=== PATIENT | male | born 1935 | race Caucasian/White ===

== ENCOUNTER → 2017-01-05 | Outpatient (CLI) | payer OTHER | LOC: FIMAGING 12:55 | PROVIDERS: ATTEND Internal Medicine | DX: M51.36 Other intervertebral disc degeneration, lumbar region (principal); M47.26 Other spondylosis with radiculopathy, lumbar region ==

== ENCOUNTER → 2017-08-24 | Outpatient (CLI) | payer OTHER | LOC: FIMAGING 14:51 | PROVIDERS: ATTEND Physical Medicine & Rehabilitation Neuromuscular Medicine | DX: M54.31 Sciatica, right side (principal) ==

== ENCOUNTER 2017-11-11 10:40 | Inpatient (IN) | payer OTHER ==
[2017-11-11] MEDS ORDERED: fentaNYL 100 MCG/2 ML INJ IVP ONE (12:34)
[2017-11-11] MEDS ORDERED: DIAZEPAM 10 MG/2 ML SYR IVP ONE (14:05)
[2017-11-11] MEDS ORDERED: KETOROLAC 30 MG/1 ML SDV IVP ONE (14:05)
[2017-11-11 15:20] LABS: PLATELET COUNT 249 10^3/uL (150-400)
--- NOTE | 2017-11-11 16:36 | EDPHY ---
H & P Stated Complaint: back pain Time Seen by Provider: 11/11/17 11:19 HPI/ROS: CHIEF COMPLAINT: Back pain HISTORY OF PRESENT ILLNESS: This is an 82-year-old male with a history of chronic back pain secondary to degenerative disease and spinal stenosis. He has been cared for by Dr. Alvarado and Dr. Agrawal for this problem. 1 week ago he bent over and when he stood up he felt a pulling in his right low back. The following day he had worsening pain with walking and the day after that he was unable to walk because of sharp pain in his right low back and pain radiating into the right leg. He has been using a cane for the past 6 months but was unable to get up and go to the bathroom, even with a cane. He has not been out of bed for the past 5 days. He has been taking 6-8 ibuprofen pills daily. He takes gabapentin 300 mg daily. He is not aware of any weakness. He tells me that he can't walk because the pain is so severe. He has not had any bowel or bladder problems. No fever. He has no known malignancies. He has never used IV drugs. This past August he received a Medrol Dosepak for treatment of back pain. He had a very adverse response to this medication and no pain relief. As a result , he in his doctor opted not to do a steroid injection. He has recently had a few physical therapy sessions. Hip x-ray of the right side was done this fall. An MRI of his back was done in December of 2016. REVIEW OF SYSTEMS: A ten point review of systems was performed and is negative with the exception of the items mentioned in the HPI. Past medical history: 1. Mild hypertension 2. 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 Chronic low back pain and sciatica Past surgical history: Right nephrectomy Social history: He is originally from [place]. He is here with his of 55 years. He does not use tobacco products. General Appearance: Alert. Vital signs reviewed. Lying supine on the bed. Blood pressure 180/93 at triage. Eyes: Pupils equal and round, no conjunctival injection, no discharge. Anicteric. ENT, Mouth: Mucous membranes are moist, no oropharyngeal erythema or edema. Neck: No lymphadenopathy, supple. Nontender over the cervical spine. Respiratory: Lungs are clear to auscultation; no wheezes, rales, or rhonchi. Cardiovascular: Regular rate and rhythm; 2/6 murmur. Gastrointestinal: Abdomen is soft and nontender, no masses or organomegaly, bowel sounds normal. Skin: Warm and dry, no rashes on exposed skin, normal color. Back: See neurologic exam Extremities: No lower extremity edema, no calf tenderness or swelling. Neurological: Alert and oriented. He remained supine on the bed throughout my interactions with him. He has some tenderness with palpation of the back at the level of his waist, to the right of the midline. No palpable muscle spasm. His strength is 5/5 with testing of hip flexion, hip extension, knee flexion, knee extension, plantar flexion, dorsiflexion, and EHL. Sensation is intact to light touch over both lower extremities. Psychiatric: Normal affect. - Personal History Current Tetanus Diphtheria and Acellular Pertussis (TDAP): Yes - Medical/Surgical History Hx Asthma: No Hx Chronic Respiratory Disease: No Hx Diabetes: No Hx Cardiac Disease: No Hx Renal Disease: Yes Hx Cirrhosis: No Hx Alcoholism: No Hx HIV/AIDS: No Hx Splenectomy or Spleen Trauma: No Other PMH: TB, nephrectomy, spinal stenosis, sciatica, Severe right hip arthritis - Social History Smoking Status: Never smoked Constitutional: Initial Vital Signs Temperature (C) 36.8 C 11/11/17 10:49 Heart Rate 70 11/11/17 10:49 Respiratory Rate 16 11/11/17 10:49 Blood Pressure 180/93 H 11/11/17 10:49 O2 Sat (%) 95 11/11/17 10:49 O2 Delivery Mode Nasal Cannula O2 (L/minute) 2 Allergies/Adverse Reactions: No Known Allergies Allergy (Unverified 11/11/17 12:42) Home Medications: Medication Instructions Recorded Gabapentin [Neurontin 300 MG (*)] 300 mg PO BID 11/11/17 Ibuprofen [Motrin (*)] 200 mg PO Q6H PRN 11/11/17 Medical Decision Making ED Course/Re-evaluation: Acute on chronic low back pain for which she has been taking ibuprofen and gabapentin at home. The pain has been so severe that he has been unable to get out of the bed foot out of his bed for the past 5 days. His neurologic exam is normal. He has not had bowel or bladder difficulties. He last had a lumbar MRI in December. He has also had his right hip x-rayed and has been told that it is "bone on bone ". He took ibuprofen a few hours before coming to the emergency department. Anti inflammatory medications were avoided until 6 hr had passed from the time of that dose. He was then given Toradol 15 mg. He also received IV fentanyl, IV Valium. He had some improvement with these medications but was still unable to sit up or stand at the bedside. Again, it was not because of weakness but because of pain. CBC and chemistries are normal. Urinated while in the department but is sample was not obtained. He has not had dysuria, urgency or frequency. He has had no difficulty controlling his urination. He is going to be admitted by the hospitalist service. He will possibly need to have another MRI to assess for pathology that would account for this acute change. Given his normal neurologic exam I do not feel that he needs an MRI in the emergency department. He has not fallen or had other trauma and I do not think the plain films will be helpful. There is nothing in the history or exam that makes me suspect infection. He has no known malignancy. He does have a history of tuberculosis in the remote past but no evidence of spinal tuberculosis was seen on his previous MRI. He is being admitted to the hospitalist service, as he is not able to get up out of bed and care for himself. Differential Diagnosis: Back pain including but not limited to muscular pain, herniated disc, diskitis, spine fracture, intra-abdominal causes and urinary tract infection. - Data Points Laboratory Results: Laboratory Results 11/11/17 11:22 11/11/17 11:22 11/11/17 11/11/17 11:22 11:22 WBC 5.44 10^3/uL 10^3/uL (3.80-9.50) RBC 5.32 10^6/uL 10^6/uL (4.40-6.38) Hgb 17.4 g/dL g/dL (13.7-17.5) Hct 50.9 % % (40.0-51.0) MCV 95.7 fL fL (81.5-99.8) MCH 32.7 pg pg (27.9-34.1) MCHC 34.2 g/dL g/dL (32.4-36.7) RDW 13.7 % % (11.5-15.2) Plt Count 249 10^3/uL 10^3/uL (150-400) MPV 10.0 fL fL (8.7-11.7) Neut % (Auto) 70.4 % % (39.3-74.2) Lymph % (Auto) 15.1 % % (15.0-45.0) [place] % (Auto) 12.3 % % (4.5-13.0) Eos % (Auto) 0.7 % % (0.6-7.6) Baso % (Auto) 0.4 % % (0.3-1.7) Nucleat RBC Rel Count 0.0 % % (0.0-0.2) Absolute Neuts (auto) 3.83 10^3/uL 10^3/uL (1.70-6.50) Absolute Lymphs (auto) 0.82 10^3/uL L 10^3/uL (1.00-3.00) Absolute Monos (auto) 0.67 10^3/uL 10^3/uL (0.30-0.80) Absolute Eos (auto) 0.04 10^3/uL 10^3/uL (0.03-0.40) Absolute Basos (auto) 0.02 10^3/uL 10^3/uL (0.02-0.10) Absolute Nucleated RBC 0.00 10^3/uL 10^3/uL (0-0.01) Immature Gran % 1.1 % % (0.0-1.1) Immature Gran # 0.06 10^3/uL 10^3/uL (0.00-0.10) Sodium 140 mEq/L mEq/L (135-145) Potassium 4.9 mEq/L mEq/L (3.5-5.2) Chloride 104 mEq/L mEq/L (97-110) Carbon Dioxide 24 mEq/l mEq/l (22-31) Anion Gap 12 mEq/L mEq/L (8-16) BUN 28 mg/dL H mg/dL (7-23) Creatinine 1.3 mg/dL mg/dL (0.7-1.3) Estimated GFR 53 Glucose 104 mg/dL H mg/dL (70-100) Calcium 9.8 mg/dL mg/dL (8.5-10.4) Medications Given: Discontinued Medications Diazepam (Valium) 2 mg IVP EDNOW ONE Stop: 11/11/17 14:06 Last Admin: 11/11/17 14:10 Dose: 2 mg Fentanyl (Sublimaze) 75 mcg IVP EDNOW ONE Stop: 11/11/17 12:35 Last Admin: 11/11/17 12:43 Dose: 75 mcg Ketorolac Tromethamine (Toradol) 10 mg IVP EDNOW ONE Stop: 11/11/17 14:06 Last Admin: 11/11/17 14:09 Dose: 10 mg Departure - Departure Disposition: [facility] Inpatient Acute Clinical Impression: Intractable low back pain Condition: Good
[2017-11-11] MEDS ORDERED: ONDANSETRON DISINTEGRATING 4 MG TAB PO PRN (17:43)
[2017-11-11] MEDS ORDERED: HYDROmorphONE/DILAUDID 1 MG/ML INJ IVP PRN (17:43)
[2017-11-11] MEDS ORDERED: ONDANSETRON 4 MG/2 ML VIAL IVP PRN (17:43)
[2017-11-11] MEDS ORDERED: ACETAMINOPHEN 325 MG TAB PO SCH (17:45)
[2017-11-11] MEDS ORDERED: traMADol 50 MG TAB PO PRN (17:45)
[2017-11-11] MEDS ORDERED: DIAZEPAM 2 MG TAB PO PRN (17:45)
--- NOTE | 2017-11-11 18:24 | GHP ---
[f rep st] HISTORY AND PHYSICAL DATE OF ADMISSION: 11/11/2017 HISTORY OF PRESENT ILLNESS: The patient is an 82-year-old gentleman with a history of spinal stenosi s and right hip arthritis, who presents with pain in his right side so bad that he cannot walk. It b dimas about a week ago when he bent over to cloth picker something. He felt something pull and since then, he has really had a hard time moving at all. He has not had any bowel or bladder incontinence. The pain has largely been between his hip in his spine. He has not had fever or chills. He does not curran ve redness or swelling. He says it is painful to sit up, and he is unable to bear weight. There was no fall. There was no pop. He has not had swelling in his legs. He does not use IV drugs. He received a Medrol Dosepak in August, with no pain relief, so a plan for steroid injection was un remarkable. He did not receive imaging in the emergency department, but I did discuss the case with Dr. Helen Maloney. REVIEW OF SYSTEMS: Complete 10-point review of systems conducted and negative except as noted in the HPI. PAST MEDICAL HISTORY: Hypertension. Tuberculosis at age 13. He had a right nephrectomy at age 28 f or tuberculosis. He has had chronic low back pain, with spinal stenosis, most severe at L4. SOCIAL HISTORY: He is a manager physical. He was born in [facility]. He lived in [place] for t he bulk of his life. Wine in the evening. No tobacco. FAMILY HISTORY: Parents . PHYSICAL EXAMINATION: VITAL SIGNS: Temp 36.8, blood pressure 180/93, now 167/89, pulse 60, breathin g 16 times a minute, 98% on room air. GENERAL: No acute distress. HEENT: Sclerae anicteric. Orop harynx clear. Mucous membranes moist. NECK: Supple, without lymphadenopathy or JVD. LUNGS: Clear to auscultation bilaterally. HEART: S1, S2. ABDOMEN: Soft, nontender, nondistended. LOWER EXTRE MITIES: Without edema. Calves nontender. In his right leg, he has a positive straight leg in the s ense that he has severe pain in his hip area at about 20 degrees. There is no radiating below his le g. SKIN: Without rash. DIAGNOSTIC DATA: We will perform a CAT to make sure he has no fracture and ATN of his hip. ASSESSMENT AND PLAN: An 82-year-old gentleman with spinal stenosis, here with hip and back pain prec luding him from walking. 1. Hip pain. I want make sure he does not have avascular necrosis or a fractured hip and will perfo rm a CT. 2. Back pain. This does not seem like pure sciatica. We will hold off on steroids. We will give h im Valium, on Toradol for 24 hours, some opiate pain relief, and PT/OT. I will hold off on imaging h is spine, as there are no neurologic deficits. 3. Hypertension. This is pain-related. 4. Prophylaxis. Low-molecular weight heparin. DISPOSITION: Observation status. /[id number]/MODL
[2017-11-11] MEDS: KETOROLAC 15 MG/1 ML SDV IVP SCH (19:05)
[2017-11-11] MEDS: ACETAMINOPHEN 500 MG TAB PO SCH (22:42)
[2017-11-11] MEDS: GABAPENTIN 300 MG CAP PO SCH (22:42)
[2017-11-12] MEDS: KETOROLAC 15 MG/1 ML SDV IVP SCH ×5 (00:43→23:39)
[2017-11-12] MEDS: ACETAMINOPHEN 500 MG TAB PO SCH ×3 (05:03→21:05)
[2017-11-12] MEDS: ENOXAPARIN 40 MG/0.4 ML SYR SC SCH (08:31)
[2017-11-12] MEDS: GABAPENTIN 300 MG CAP PO SCH ×2 (08:31→21:05)
--- NOTE | 2017-11-12 08:45 | HOSPPROG ---
Hospitalist Progress Note Assessment/Plan: Patient is an 82-year-old male with a history spinal stenosis and right hip arthritis. He presented the emergency room with severe right hip pain. Today is my 1st encounter with the patient. Chart reviewed. I reviewed the CT of his extremity. This showed severe right hip osteoarthritis. There is no evidence of avascular necrosis. *right hip pain CT scan confirms that he has severe osteoarthritis Will wait for physical therapy and occupational therapy to see him spoke with orthopedics to see if they have any input *back pain able to do straight leg lifts has spinal stenosis it doesn't appear this is the cause of his pain *htn bp elevated *Plan: orthopedics to see, not clear if he may need a hip replacement due to the severe osteoarthritis or if he would benefit from a steroid injection into the hip. Will re-evaluate today later and see if he can ambulate. He has been very active in the past. Subjective: Ramirez said the pain is very intense and he is unable to walk. Objective: Vital Signs Temp Pulse Resp BP Pulse Ox 36.7 C 63 18 153/80 H 92 11/12/17 07:26 11/12/17 07:26 11/12/17 07:26 11/12/17 07:26 11/12/17 07:26 11/11/17 11/12/17 11/13/17 05:59 05:59 05:59 Intake Total 250 Output Total 125 Balance 125 - Physical Exam Constitutional: uncomfortable, other (slender) Eyes: EOMI Ears, Nose, Mouth, Throat: hearing normal Cardiovascular: regular rate and rhythym Respiratory: no respiratory distress Gastrointestinal: normoactive bowel sounds Skin: warm, normal color Musculoskeletal: muscular tenderness (right hip) Neurologic: AAOx3 Psychiatric: interacting appropriately, not anxious ICD10 Worksheet Patient Problems: Problems Problem Status Onset Intractable low back pain Acute
--- NOTE | 2017-11-12 11:00 | ASMTCASEMG ---
Living Arrangements What is your living Answers: With Spouse arrangement? Who do you live with? Type Of Residence What kind of residence do Answers: House you live in? Discharge Plan Comments Coordination Status Comments Notes: Pt is a 82 y/o man admitted for intractable back pain. Therapies have been ordered and awaiting recommendations. Needs are TBD at this time. CM to follow. Plan: TBD Date Signed: 11/12/2017 10:59 AM Electronically Signed By:JOSE Montana
--- NOTE | 2017-11-12 19:36 | PDMN ---
Medical Necessity Medical necessity: Patient meets inpatient criteria per FILM AND VIDEO EDITOR note and [facility] guidelines: LOS will be > 2 midnights for ongoing intractable back pain and new inability to ambulate without significant pain; awaiting ortho consult/ additional evaluation, ongoing PT/OT, IV toradol.
--- NOTE | 2017-11-13 04:35 | GCON ---
[f rep st] CONSULTATION INPATIENT CONSULT NOTE CHIEF COMPLAINT: Right hip pain. HISTORY OF PRESENT ILLNESS: An 82-year-old gentleman with known spinal stenosis and right hip arthri tis. He says his right hip pain, which he describes as more posterior hip, has been really getting w orse over the last year. He also has spinal stenosis with bouts of leg pain. He has not seen a spin e surgeon about spinal stenosis. He has had an MRI showing the spinal stenosis. He has not had an e pidural steroid injection in the past. Acutely, just over a week ago, he bent over and felt a pop in his low back. Since this time, he has had more excruciating pain in the right hip and buttock area with some radiation down his leg. He had been able to walk before this. He is now having a lot of d ifficulty in ambulation. He is able to bear some weight on this, but is only able to walk a couple o f feet. He has been admitted to the hospital for pain control. He complains of pain in the right hi p and buttock area posteriorly. Really denies significant groin pain. He says sometimes pain does r adiate down. He does have some calf pain as well. REVIEW OF SYSTEMS: A 10-point review of systems is negative, except for above. PAST MEDICAL HISTORY: Hypertension, right nephrectomy. SOCIAL HISTORY: He lives with his . Occasional alcohol. No tobacco. FAMILY HISTORY: Reviewed and noncontributory. MEDICATIONS: Please see inpatient medication list. ALLERGIES: See inpatient allergy list. PHYSICAL EXAMINATION: GENERAL: He is alert, oriented, and appropriate. He is in no distress. CLOTILDE L SIGNS: Stable. HEENT: He is normocephalic and is atraumatic. His eyes are equal and reactive. His mouth shows moist mucous membranes. NECK: Supple. UPPER EXTREMITIES: Moves well without abnor mality. No areas of tenderness. CHEST: Shows symmetric chest rise. Pulse is regular rate and rhyt hm. ABDOMEN: Soft. LOWER EXTREMITIES: Left lower extremity, moves well at the hip, knee, and ankl e without any abnormalities. Negative straight leg raise on the left. He has 5/5 strength dorsiflex ion, plantar flexion, EHL, and FHL. On the right, he has tenderness to palpation more in his posteri or hip. He is really nontender anteriorly. He has a positive straight leg raise with radiating pain . He is nontender in his low back. He does have 0 degrees internal rotation. This is painful. He has 20 degrees of external rotation, which is also painful, more in his posterior hip. He has 5/5 st rength in his knee extension, dorsiflexion, plantar flexion, ankle dorsiflexion, plantar flexion in h is great toe. RADIOGRAPHS: His plain films, as well as CT scan shows severe hip arthritis. I do not see any evide nce of collapse nor AVN. No fracture in his hip. ASSESSMENT AND PLAN: 1. Right hip degenerative joint disease. 2. Spinal stenosis with sciatic pain. PLAN: I discussed the nature of his condition and treatment options with he and his . I do feel his acute flare in the last week is more consistent with a flare of spinal stenosis and sciatic pain . I do not see any collapse at his hip, nor AVN, nor fracture. I think it would be unlikely his hip arthritis would progress so quickly. I would recommend an MRI of his lumbar spine to look for an ac [place] disk herniation or further stenosis. He may then require some sort of intervention for this, suc h as an epidural steroid injection or consultation with spine surgeon. If he can get over the acute sciatic flare, I think he will eventually require total hip replacement, but it would be better that this be performed when he is able to ambulate more effectively and do this rehab after surgery if pos sible. Ideally, he would be able to discharge from the hospital and schedule a total hip on an [facility] outpatient basis. Follow up on the results of his scan and see how he improves in his hospital ava marcial. /[id number]/MODL
[2017-11-13] MEDS: KETOROLAC 15 MG/1 ML SDV IVP SCH ×3 (05:19→17:36)
[2017-11-13] MEDS: ACETAMINOPHEN 500 MG TAB PO SCH ×3 (05:19→21:28)
[2017-11-13] MEDS: ENOXAPARIN 40 MG/0.4 ML SYR SC SCH (07:51)
[2017-11-13] MEDS: GABAPENTIN 300 MG CAP PO SCH ×2 (07:51→21:28)
--- NOTE | 2017-11-13 10:00 | HOSPPROG ---
Hospitalist Progress Note Assessment/Plan: Patient is an 82-year-old male with a history spinal stenosis and right hip arthritis. He presented the emergency room with severe right hip pain. I reviewed the CT of his extremity. This showed severe right hip osteoarthritis. There is no evidence of avascular necrosis. *right hip pain CT scan confirms that he has severe osteoarthritis appreciate Dr Dasilva likely will need hip replacement in the future *back pain/MRI shows narrowing, stenosis neurosurgery to see having difficulty w walking due to the pain *htn bp stable *Plan:spoke w neurosurgery, they will see Ramirez today. Appreciate their involvement. Subjective: Ramirez is comfortable while in bed, has pain in right side of back and hip area with walking. Objective: Vital Signs Temp Pulse Resp BP Pulse Ox 36.2 C 62 16 138/72 H 93 11/13/17 04:00 11/13/17 04:00 11/13/17 04:00 11/13/17 04:00 11/13/17 04:00 11/12/17 11/13/17 11/14/17 05:59 05:59 05:59 Intake Total 550 Output Total 675 Balance -125 - Physical Exam Constitutional: uncomfortable Eyes: PERRL Ears, Nose, Mouth, Throat: hearing normal Cardiovascular: regular rate and rhythym, systolic murmur Respiratory: no respiratory distress Skin: warm Musculoskeletal: muscular tenderness, generalized weakness Neurologic: AAOx3 Psychiatric: interacting appropriately, not anxious ICD10 Worksheet Patient Problems: Problems Problem Status Onset Intractable low back pain Acute
--- NOTE | 2017-11-13 10:11 | SOAPPROG ---
[facility] Progress Note Assessment/Plan: Assessment: R hip severe djd R L4-L5 severe stenosis and disc herniation Plan: Based on MRI and history I feel his acute presentation is likely related to his spine pathology Agree with Neurosurgery consult Ideally he would get his lumbar mediated pain under control then have an outpatient total hip at some point in the future when he is able to ambulate and effectively participate in the post op rehab Recommend out patient follow up with Dr. Rodriguez for eval for total hip arthroplasty 11/13/17 10:07 Objective: Vital Signs Temp Pulse Resp BP Pulse Ox 36.2 C 62 16 138/72 H 93 11/13/17 04:00 11/13/17 04:00 11/13/17 04:00 11/13/17 04:00 11/13/17 04:00 11/12/17 11/13/17 11/14/17 05:59 05:59 05:59 Intake Total 550 Output Total 675 Balance -125 ICD10 Worksheet Patient Problems: Problems Problem Status Onset Intractable low back pain Acute
--- NOTE | 2017-11-13 13:27 | GCON ---
[f rep st] CONSULTATION CONSULTATION/HISTORY AND PHYSICAL DATE OF CONSULTATION: 11/13/2017 Patient seen in inpatient room 378 at 11:30 a.m. on 11/13/2017, by myself and Dr. Paredes. CHIEF COMPLAINT: Lower back pain with right lower extremity pain. HISTORY OF PRESENT ILLNESS: The patient is an 82-year-old male who lives here in the [facility]. He is originally from [facility]. He presented to the emergency department with lower back pain and right lower extremity pain. He has had a history of lower back issues and lower extremity issues robert t started approximately 4 years ago. At that time, he was seen in [place], had an MRI of his lumbar spine which showed an L4-5 degenerative disk disease with some stenosis. He did physical therapy an d got improvement on his own. He is a very active male. He states that walking is his big issue now , even walking any distance he gets symptoms down his leg on the right side. He denies any left lowe r extremity symptoms. He states he is able tolerate riding his bicycle well. He states over the course of the last 6 months and more so over the last 10 days, he has had worsenin g symptoms. He denies any loss of bowel or bladder control. Denies any upper extremity complaints, such as numbness, tingling or weakness. He does have a history of spinal stenosis and right hip arth ritis. The symptoms worsened over the course of the past week when he bent over to picker and packer something . He laid in bed for approximately 5 days. He came into the emergency department this past Sunday, was admitted to the internal medicine service, and imaging was obtained. We were consulted after the MRI was ordered and for the right lower extremity pain. He had a Medrol Dosepak in August. He curran s had physical therapy. There was plan for epidural steroid injection with Dr. Agrawal, but this has not happened yet. No saddle numbness. No perianal numbness. He is able to void appropriately. REVIEW OF SYSTEMS: Complete 10-point review of systems was conducted and negative, except as noted i n HPI. PAST MEDICAL HISTORY: Significant for the followin. Hypertension. 2. Tuberculosis at age 13. 3. Right nephrectomy at age 28 for tuberculosis. 4. Chronic lower back pain. 5. Spinal stenosis, most severe at L4-5. MEDICATIONS: Please see med rec form. ALLERGIES: No known drug allergies. PAST SURGICAL HISTORY: As noted above, as well as removal of appendix for an appendicitis in conjunc tion with the history of removal of a kidney related to TB. 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 He was born in [facility]. He lived in [place] [facility] for the majority of his life. He drinks a glass of wine in the evening and has no risk factors f or HIV or AIDS. He is a nonsmoker. FAMILY HISTORY: Patient's parents . IMMUNIZATIONS: Reported up-to-date. TRAVEL: No recent travel. PHYSICAL EXAMINATION: GENERAL: This is an awake, alert, oriented male in no acute distress. MOST R ECENT VITAL SIGNS: Blood pressure 161/77, with a MAP of 105; 80 heart rate, 16 respirations, 95% on room air, and temperature 36.6. HEENT: Head is normocephalic, atraumatic. Pupils are equal, round, reactive to light. The patient does have some vision loss on the left side related to history of an eye issue. EOMs intact. Ears are patent. Nose is patent. NECK: Soft and supple. Midline tender ness. Full range of motion in flexion, extension, lateral bending, and rotation. RESPIRATORY: Defe rred. CARDIAC: Deferred. ABDOMEN: Soft, nontender. No peritoneal signs. : Deferred. RECTAL: Deferred. NEUROLOGIC: Patient is awake, alert, and oriented to name, place, location, date, time, and situation. Memory is intact to immediate, past, and current events. Speech: No aphasia, dysar thria, or dysphonia. Cranial nerves 2-12 grossly intact. Motor: Patient has 5/5 strength in all mu scle groups of bilateral upper and lower extremities to include deltoid, biceps, triceps, brachioradi dexter, wrist flexors and extensors, cellular equipment repairer, intrinsic fingers, iliopsoas, quadriceps, hamstring, plantar flexion, dorsiflexion, EHL testing. Sensation is grossly intact to light touch throughout all derma tome distributions upper and lower extremities. Negative straight leg raise. Negative CARLY test. Reflexes of biceps, triceps, brachioradialis, knee jerk, and ankle jerk 2+/4. Toes are downgoing ivana aterally. Jose negative. Babinski negative. No evidence of clonus. MEDICAL DECISION-MAKING/DIAGNOSTIC STUDIES: Laboratory tests: White count 5.44 with an H and H of 1 7.4 and 50.9 with platelet count of 249. Chemistry on 11/11/2017, same day as the CBC, shows a sodiu m of 140, potassium 4.9, chloride 104, CO2 of 24, BUN 28, creatinine 1.3, and glucose of 104. Extremity CT on 11/11/2017, of the right hip, shows severe right hip osteoarthritis with no fracture or evidence of AVN. X-rays of the hip obtained 11/12/2017, show no fracture or bone lesion. MRI of the lumbar spine dated 11/13/2017, shows multilevel degenerative changes noted, non-visualized right kidney. At L4-5, he has severe central stenosis. There is severe right neural foraminal sten osis. There is a disk herniation noted in the neural foramen on the right. There is moderate bilate ral facet arthropathy and ligamentum flavum hypertrophy. At 3-4, he has moderate central canal steno sis secondary to a broad-based disk bulge. At L2-3, there is moderate central canal stenosis seconda ry to moderate facet arthropathy, and a disk bulge is noted as well. IMPRESSION: 1. History of tuberculosis as a child with history of right kidney removal related to this issue. 2. Chronic lower back pain with right lower extremity pain that has worsened over the course of the last few days. 3. Degenerative disk disease and severe stenosis at L4-5, worse on the right. PLAN/DISCUSSION: This is an 82-year-old male who is otherwise very active and healthy for his age. He was seen by the internal medicine physicians, and an MRI was ordered. He does have severe stenosi s on the right side at L4-5. I spoke with the patient about surgical and nonsurgical treatments for this, including fusion as well as decompression. Recommended an injection at this level on the right side at L4-5. This was ordered through the interventional radiology department. He will get this i njection here hopefully in the next day or so. We will see how he reacts to that. We talked about s urgical treatments; he states he is not interested at this time. We talked about worsening symptoms, when to call and return. The patient understands and agrees. /[id number]/MODL
--- NOTE | 2017-11-13 15:55 | ASMTCMCOM ---
CM Note CM Note Notes: CM met w/ pt and for dispo planning. OT is recommending HC vs SNF. PT is recommending HC. Pt would like to d/c with HC instead of going to SNF. Pt and did not have preference on HC agency. Referral made to [facility]. HC is able to accept. CM to follow. Plan: [facility], PT and OT Date Signed: 11/13/2017 03:54 PM Electronically Signed By:JOSE [place]
[2017-11-14] MEDS: KETOROLAC 15 MG/1 ML SDV IVP SCH ×4 (00:16→18:26)
[2017-11-14] MEDS: ACETAMINOPHEN 500 MG TAB PO SCH ×3 (05:38→21:30)
[2017-11-14] MEDS: GABAPENTIN 300 MG CAP PO SCH ×2 (07:30→21:30)
--- NOTE | 2017-11-14 07:48 | SOAPPROG ---
SOYUSUF Progress Note Assessment/Plan: Assessment: 82 yo male with right leg pain due to L4/5 foraminal stenosis. No weakness or tingling or b/b issues Plan: IR for BOB today we will follow response post injection 11/14/17 07:46 Subjective: awake, alert, c/o right leg pain when walking, fine at rest denies b/b issues, weakness or tingling Objective: Vital Signs Temp Pulse Resp BP Pulse Ox 36.8 C 69 18 167/82 H 96 11/14/17 07:26 11/14/17 07:26 11/14/17 07:26 11/14/17 07:26 11/14/17 07:26 11/13/17 11/14/17 11/15/17 05:59 05:59 05:59 Intake Total 550 650 Output Total 675 Balance -125 650 Neuro: IGLESIAS, sens +LT follows commands x 4 alert and oriented, normal affect ICD10 Worksheet Patient Problems: Problems Problem Status Onset Intractable low back pain Acute
--- NOTE | 2017-11-14 12:59 | HOSPPROG ---
Hospitalist Progress Note Assessment/Plan: Patient is an 82-year-old male with a history spinal stenosis and right hip arthritis. He presented the emergency room with severe right hip pain. I reviewed the CT of his extremity. This showed severe right hip osteoarthritis. There is no evidence of avascular necrosis. *right hip pain CT scan confirms that he has severe osteoarthritis appreciate Dr Dasilva likely will need hip replacement in the future *back pain/MRI shows narrowing, stenosis IR today for a BOB appreciate neurosurgery team *htn bp elevated today, will follow *dvt prophylaxis: athrombic pumps, reyna hose, no LMWH due to procedure *Plan: to go to IR today for steroid injection and can hopefully discharge in the morning. Subjective: Ramirez said he was able to walk a bit yesterday, but continues to have right sided back pain. Objective: Vital Signs Temp Pulse Resp BP Pulse Ox 36.5 C 70 18 171/86 H 96 11/14/17 10:41 11/14/17 10:41 11/14/17 10:41 11/14/17 10:41 11/14/17 10:41 11/13/17 11/14/17 11/15/17 05:59 05:59 05:59 Intake Total 550 650 Output Total 675 Balance -125 650 - Physical Exam Constitutional: uncomfortable Eyes: PERRL Ears, Nose, Mouth, Throat: hearing normal Respiratory: no respiratory distress Skin: warm Musculoskeletal: generalized weakness Neurologic: AAOx3 Psychiatric: interacting appropriately ICD10 Worksheet Patient Problems: Problems Problem Status Onset Intractable low back pain Acute
[2017-11-14] MEDS ORDERED: D5W 1/2 NS 1,000 ML IV SCH (13:00)
[2017-11-14] MEDS ORDERED: TRIAMCINOLONE ACETONIDE 200 MG/5 ML MDV IM ONE (16:12)
[2017-11-15] MEDS: KETOROLAC 15 MG/1 ML SDV IVP SCH ×2 (00:56→05:53)
[2017-11-15] MEDS: ACETAMINOPHEN 500 MG TAB PO SCH (05:53)
[2017-11-15 07:20] VITALS: BP 163/92; PULSE 82; RESP 18; TEMP 98; O2SAT 94
--- NOTE | 2017-11-15 08:19 | HOSPPROG ---
Hospitalist Progress Note Assessment/Plan: Patient is an 82-year-old male with a history spinal stenosis and right hip arthritis. He presented the emergency room with severe right hip pain. I reviewed the CT of his extremity. This showed severe right hip osteoarthritis. There is no evidence of avascular necrosis. *right hip pain CT scan confirms that he has severe osteoarthritis appreciate Dr Dasilva likely will need hip replacement in the future *back pain/MRI shows narrowing, stenosis s/p BOB at L3-L4 *htn bp elevated today, *dvt prophylaxis: athrombic pumps, reyna hose, no LMWH due to procedure *Plan: dc home with home care/ further f/u with Dr Dasilva and neurosurgery team Subjective: Ramirez is feeling much better, ambulating well. Objective: Vital Signs Temp Pulse Resp BP Pulse Ox 36.6 C 82 18 163/92 H 94 11/15/17 07:19 11/15/17 07:19 11/15/17 07:19 11/15/17 07:19 11/15/17 07:19 11/14/17 11/15/17 11/16/17 05:59 05:59 05:59 Intake Total 650 150 Output Total 200 300 Balance 650 -50 -300 - Physical Exam Constitutional: no apparent distress, appears nourished Eyes: PERRL Ears, Nose, Mouth, Throat: hearing normal Respiratory: no respiratory distress Skin: warm Musculoskeletal: generalized weakness (able to ambulate ) Neurologic: AAOx3 Psychiatric: interacting appropriately ICD10 Worksheet Patient Problems: Problems Problem Status Onset Intractable low back pain Acute
[2017-11-15] MEDS: ENOXAPARIN 40 MG/0.4 ML SYR SC SCH (08:30)
[2017-11-15] MEDS: GABAPENTIN 300 MG CAP PO SCH (08:30)
--- NOTE | 2017-11-15 09:03 | PDIAF ---
- Diagnosis Diagnosis: severe stenosis, s/p BOB, right hip pain, severe osteoathritis Code Status: Full Code - Medication Management Discharge Medications: Medications to Continue on Transfer Gabapentin [Neurontin 300 MG (*)] 300 mg PO BID 11/11/17 [Last Taken 11/10/17] Ibuprofen [Motrin (*)] 200 mg PO Q6H PRN 11/11/17 [Last Taken 11/11/17 10:00] Acetaminophen [Tylenol ES 500 mg (*)] 1,000 mg PO Q8 tab 11/15/17 [Last Taken Unknown] traMADol [Ultram 50 mg (*)] 50 mg PO Q6HRS PRN #20 tab 11/15/17 [Last Taken Unknown] Discharge Medications: Refer to the Discharge Home Medication list for PRN reason. - Orders Services needed: Home Care, Physical Therapy, Occupational Therapy Home Care Face to Face: I certify that this patient was under my care and that I had the required [id number] encounter meeting the encounter requirements on the discharge day. My findings support the fact that the patient is homebound as defined in Home Care Face to Face Continued: CMS Chapter 7 Medicare Benefits Manual 30.1.1 , The condition of the patient is such that there exists a normal inability to leave home and consequently, leaving home would require a considerable and taxing effort. Diet Recommendation: no restrictions on diet Diet Texture: Regular Texture Diet Activity/Weight Bearing Restrictions: goal is to help him get oob safely, ambulate. Strengthening exercises. - Follow Up Care Current Providers and Referrals: Daniel Brenner PAC [Physician Washroom Operator] - Macario Dasilva MD [Medical Doctor] - NONE *PRIMARY CARE P,. [Unknown] -
--- NOTE | 2017-11-15 09:24 | NEUSURGPN ---
Assessment/Plan: Assessment/Plan: Assessment: 82 yo male with right leg pain due to L4/5 foraminal stenosis. Plan: SP L4/5 BOB- improved this morning but has yet to get up and walk. Will see how he does up and walking around today, but did also tell him it can take 1-2 weeks to take full effect Plan to DC today and will follow up with us in 4-6 weeks. If no better after injection, could still consider surgery Recommend continued use of NSAIDs- Ibuprofen at home as needed Discussed with Dr. Sarah Subjective: Patient states he thinks he feels somewhat better today but has not yet been out of bed this morning. Denies weakness, bowel or bladder dysfunction. Objective: NAD Resting in bed BLE 5/5= Sensation intact to lt touch DTR 2+ delicia - Physician Discussed Patient with : Reggie Neurosurgery Physical Exam - Vitals, I&O, Labs I and O 11/14/17 11/15/17 11/16/17 05:59 05:59 05:59 Intake Total 650 150 Output Total 200 300 Balance 650 -50 -300 Intake: Oral (ml) 650 150 Output: Urine (ml) 200 300 Urinal 200 300 Other: Intake Quantity Yes Yes Sufficient Number of Voids Toilet 3 Vital Signs Temp Pulse Resp BP Pulse Ox 36.6 C 82 18 163/92 H 94 11/15/17 07:19 11/15/17 07:19 11/15/17 07:19 11/15/17 07:19 11/15/17 07:19 ICD10 Worksheet Patient Problems: Problems Problem Status Onset Intractable low back pain Acute
--- NOTE | 2017-11-15 09:31 | GDS ---
[f rep st] DISCHARGE SUMMARY DISCHARGE DIAGNOSES: 1. Right hip pain. 2. Back pain, severe stenosis. 3. Hypertension. CONSULTATION: 1. Dr. Macario Dasilva with Orthopedics. 2. Daniel Brenner, physician speech language pathologist assistant with Neurosurgery. HISTORY OF PRESENT ILLNESS: Briefly, the patient is an 82-year-old gentleman who has a history of spinal stenosis and right hip arthritis. He presented to the emergency room with severe pain in his right hip area that he could not walk. He did a Medrol Dosepak in August without any relief. On admission, he had a CT scan of the right hip, which showed severe right hip osteoarthritis , but he had no fracture or evidence of avascular necrosis. Subsequently, he was seen by Orthopedics. Dr. Dasilva's recommendation was to get his back pain under control and he may need further evaluation of the right hip. Subsequently , a lumbar spine MRI was performed which showed L4-L5 severe central canal stenosis and severe right neural foraminal stenosis secondary to right neural foraminal disk herniation, moderate bilateral facet arthropathy, and hypertrophy. At L3-L4, he has moderate central canal stenosis secondary to a broad-based disk bulge and bilateral facet arthropathy and at L2-L3, he has moderate central canal stenosis secondary to moderate bilateral facet arthropathy and disk bulge. Subsequently, he went to Interventional Radiology and Dr. Naylor performed a steroid injection into the L3-L4 area. Today, he is able to ambulate. He is feeling markedly better. He will be discharged home and Home Care will follow up with him. HOSPITAL COURSE: 1. Right hip pain. A CT scan confirms that he has severe osteoarthritis. He will likely need hip replacement in the future. 2. Back pain. He is status post an epidural steroid injection L3-L4, ambulating well with a walker. 3. Hypertension. His blood pressure has been elevated intermittently. Will have him follow up with his PCP. DISCHARGE CONDITION: Stable. Blood pressure is 163/92, heart rate is 82, respiratory rate is 18, O2 sat on room air 94%. Temperature is 36.6 Celsius. MEDICATIONS AT DISCHARGE: Please see the EMR. DISCHARGE INSTRUCTIONS: 1. To follow up with Dr. Dasilva. 2. If his back pain continues, to follow up with Neurosurgery. 3. If he develops fever, chills, chest pain, or shortness of breath, return to the ER. Greater than 30 minutes discharging and coordinating patient's care. /[id number]/MODL MTDD
--- NOTE | 2017-11-15 15:40 | ASDISCHSUM ---
Discharge Information Plan Status:Home with Home Health Medically Cleared to Leave: Discharge Date:11/15/2017 10:55 AM CM D/C Disposition:Home Health Service ADT D/C Disposition:Home Health Service Projected Discharge Date:11/14/2017 11:00 AM Transportation at D/C:Family Discharge Delay Reason: Follow-Up Date:11/14/2017 11:00 AM Discharge Slot: Final Diagnosis: Placement Information Referral Type:*Home Health Care Services Referral ID:[id number] Provider Name:[facility] Address 1:[address] Address 2: City:[place] Selection Factors: State:[place] Patient Contact Information Contact Name:SINAN Relationship: Address:[address] Work Phone: [facility]:[place] Alternate Phone: State/Zip Code:[place] [address] Email: Financial Information Financial Class:Medicare Advantage Plans Primary Plan Desc:[facility] [employer] Primary Plan Number:[id number] Secondary Plan Desc: Secondary Plan Number: Assessment Information [facility] Initial CM Assessment Living Arrangements What is your living Answers: With Spouse arrangement? Who do you live with? Type Of Residence What kind of residence do Answers: House you live in? Discharge Plan Comments Coordination Status Comments Notes: Pt is a 82 y/o man admitted for intractable back pain. Therapies have been ordered and awaiting recommendations. Needs are TBD at this time. CM to follow. Plan: TBD Date Signed: 11/12/2017 10:59 AM Electronically Signed By:JOSE [place] [facility] CM Progress Note CM Note CM Note Notes: CM met w/ pt and for dispo planning. OT is recommending HC vs SNF. PT is recommending HC. Pt would like to d/c with HC instead of going to SNF. Pt and did not have preference on HC agency. Referral made to [facility]. [facility] is able to accept. CM to follow. Plan: [facility], PT and OT Date Signed: 11/13/2017 03:54 PM Electronically Signed By:JOSE [place] Case Management Discharge Plan Note Case Management Discharge Discharge Order Complete? Answers: Yes Patient to Obtain Answers: Independently Medications Transportation Arranged Answers: Family/Friends Faxed Final Orders Answers: Yes Family Notified Answers: Yes Discharge Comments Notes: Spoke w/RN, pt will dc home today with [facility], [place] notified. Pt requesting PT only, orders in chart, at bedside. Date Signed: 11/15/2017 10:11 AM Electronically Signed By:Meagan Potter RN Intervention Information Intervention Type:*TREVOR-Signed Date of Service:11/12/2017 09:48 AM Patient Type:Observation Staff Member:Chantelle Doss Hours: Discipline: Severity: Comment:
== END 2017-11-15 10:55 | disposition home health service (06) | DRG 552 ==
LOC: EDUNIT# → F3E 15:37 → OBSVTOIN 11-12 17:06
PROVIDERS: ADMIT Internal Medicine; ATTEND Internal Medicine
PROC: 3E0S3BZ Introduction of Anesthetic Agent into Epidural Space, Percutaneous Approach (ICD-10-PCS; principal; 2017-11-14)
PROC: 3E0S33Z Introduction of Anti-inflammatory into Epidural Space, Percutaneous Approach (ICD-10-PCS; principal; 2017-11-14)
DX: M48.061 Spinal stenosis, lumbar region without neurogenic claudication (principal); M16.11 Unilateral primary osteoarthritis, right hip; I10 Essential (primary) hypertension; M51.26 Other intervertebral disc displacement, lumbar region; G89.29 Other chronic pain; Z86.11 Personal history of tuberculosis; Z90.5 Acquired absence of kidney
CPT/HCPCS: 96374; 97116-GP; 97162-GP; 97166-GO; 97530-GO; 97535-GO; G0378; G8978-GP-CM; G8979-GP-CJ; G8980-GP-CK; G8987-GO-CM; G8988-GO-CJ; G8989-GO-CJ; J1170; J1650; J1885; J3010; J3301; J3360

== ENCOUNTER 2017-11-30 06:27 | Inpatient (IN) | payer OTHER ==
--- NOTE | 2017-11-30 06:37 | PDHPUP ---
History & Physical Update H&P update statement: This history and physical update is based on an assessment of the patient which was completed after admission or registration (within 24 hours), but prior to the surgery/procedure. H&P update: H&P reviewed & patient examined, no change in patient's condition since H&P completed
[2017-11-30] MEDS ORDERED: ACETAMINOPHEN 500 MG TAB PO ONE (06:52)
[2017-11-30] MEDS ORDERED: ceFAZolin 2 GM/SWFI 2 GM/20 ML SYR IVP ONE (06:52)
[2017-11-30] MEDS ORDERED: GABAPENTIN 300 MG CAP PO ONE (06:52)
--- NOTE | 2017-11-30 06:53 | PDANEPAE ---
ANE History of Present Illness lumbar radiculopathy/spinal stenosis here for L4-5 fusion ANE Past Medical History - Cardiovascular History Hx Hypertension: Yes Hx Arrhythmias: No Hx Chest Pain: No Hx Coronary Artery / Peripheral Vascular Disease: No Hx CHF / Valvular Disease: No Hx Palpitations: No Cardiovascular History Comment: HEART MURMUR - ASYMPTOMATIC - Pulmonary History Hx COPD: No Hx Asthma/Reactive Airway Disease: No Hx Recent Upper Respiratory Infection: No Hx Oxygen in Use at Home: No Hx Sleep Apnea: No Sleep Apnea Screening Result - Last Documented: Negative Pulmonary History Comment: PNEUMOTHORAX AGE 13 - Neurologic History Hx Cerebrovascular Accident: No Hx Seizures: No Hx Dementia: No - Endocrine History Hx Diabetes: No - Renal History Hx Renal Disorders: Yes Renal History Comment: ONE KIDNEY - LEFT - Liver History Hx Hepatic Disorders: No - Neurological & Psychiatric Hx Hx Neurological and Psychiatric Disorders: No - Cancer History Hx Cancer: Yes Cancer History Comment: 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 EYE SURG. HERNIA REPAIR. R NEPHRECTOMY. PNEUMOTHORAX. TONSILLECTOMY ANE Review of Systems Review of Systems: - Exercise capacity Exercise capacity: >=4 METS ANE Patient History - Allergies Allergies/Adverse Reactions: No Known Allergies Allergy (Unverified 11/11/17 12:42) - Home Medications Home Medications: Gabapentin [Neurontin 300 MG (*)] 300 mg PO BID 11/11/17 [Last Taken 11/10/17] Acetaminophen [Tylenol ES 500 mg (*)] 1,000 mg PO Q8 PRN 11/27/17 [Last Taken Unknown] Valsartan [Diovan (*)] 40 mg PO DAILY 11/27/17 [Last Taken Unknown] traMADol [Ultram 50 mg (*)] 50 mg PO BID 11/27/17 [Last Taken Unknown] - NPO status NPO Status: no food or drink >8 hours - Anes Hx Anes Hx: no prior problems - Smoking Hx Smoking Status: Former smoker - Alcohol Use Alcohol Use: Occasionally - Family Anes Hx Family Anes Hx: none ANE Labs/Vital Signs - Vital Signs Height: 172.72 cm Weight: 72.75 kg ANE Physical Exam - Airway Neck exam: FROM Mallampati Score: Class 2 Mouth exam: poor dentition Mouth image: 1 - missing 2 - missing 3 - missinng 4 - missing - Pulmonary Pulmonary: no respiratory distress, clear to auscultation - Cardiovascular Cardiovascular: regular rate and rhythym, no murmur, rub, or gallop - ASA Status ASA Status: III ANE Anesthesia Plan Anesthesia Plan: general endotracheal anesthesia Total IV Anesthesia: Yes
[2017-11-30] MEDS ORDERED: LIDOCAINE 1% 2 ML INJ ID PRN (06:54)
[2017-11-30] MEDS ORDERED: LR 1,000 ML IV ONE (06:54)
[2017-11-30] MEDS ORDERED: fentaNYL 100 MCG/2 ML INJ ONE ×2 (07:08→11:40)
[2017-11-30] MEDS ORDERED: REMIFENTANIL HCL 1 MG VIAL ONE ×2 (07:08→10:26)
[2017-11-30] MEDS ORDERED: PROPOFOL/EMULSION 500 MG/50 ML BOTTLE IV ONE ×2 (07:09→10:26)
[2017-11-30] MEDS ORDERED: PROPOFOL 200 MG/20 ML VIAL ONE (07:09)
[2017-11-30] MEDS ORDERED: LIDOCAINE 2% 100 MG/5 ML SYR ONE (07:13)
[2017-11-30] MEDS ORDERED: ROCURONIUM 50 MG/5 ML VIAL ONE (07:13)
[2017-11-30] MEDS ORDERED: CHLORHEXIDINE GLUC HIBICLENS 118 ML BTL TP ONE (07:14)
[2017-11-30] MEDS ORDERED: THROMBIN (BOVINE) 5,000 UNIT VIAL TP ONE (07:15)
[2017-11-30] MEDS ORDERED: BACITRACIN 50,000 UNITS/10 ML SYR IRR ONE (07:15)
[2017-11-30] MEDS ORDERED: BUPIVACAINE 0.25% 30 ML SDV ONE (07:15)
--- NOTE | 2017-11-30 07:37 | CPEKG ---
Heart Rate: 74 RR Interval: 811 P-R Interval: 152 QRSD Interval: 100 QT Interval: 408 QTC Interval: 453 P [place]: 76 QRS [place]: -58 T Wave [place]: 45 EKG Severity - ABNORMAL ECG - EKG Impression: SINUS RHYTHM EKG Impression: LAD, CONSIDER LEFT ANTERIOR FASCICULAR BLOCK Electronically Signed By: Yousif Joseph 02-Dec-2017 06:21:02
[2017-11-30] MEDS ORDERED: ACETAMINOPHEN 500 MG TAB PO PRN ×2 (07:44→12:05)
[2017-11-30] MEDS ORDERED: NALOXONE HCL 0.4 MG/ML INJ IVP PRN ×2 (07:45→12:05)
[2017-11-30] MEDS ORDERED: ONDANSETRON DISINTEGRATING 4 MG TAB PO PRN (07:45)
[2017-11-30] MEDS ORDERED: POLYETHYLENE GLYCOL 3350 17 GM PKT PO PRN (07:45)
[2017-11-30] MEDS ORDERED: METHOCARBAMOL 750 MG TAB PO PRN (07:45)
[2017-11-30] MEDS ORDERED: BISACODYL 10 MG SUPP PR PRN (07:45)
[2017-11-30] MEDS ORDERED: ONDANSETRON 4 MG/2 ML VIAL IVP PRN (07:45)
[2017-11-30] MEDS ORDERED: MAGNESIUM HYDROXIDE 30 ML UDCUP PO PRN (07:45)
[2017-11-30] MEDS ORDERED: HYDROmorphONE/DILAUDID 1 MG/ML INJ IVP PRN ×2 (07:45→12:05)
[2017-11-30] MEDS ORDERED: NS W/ 20 KCl/L 1,000 ML IV SCH (07:45)
[2017-11-30] MEDS ORDERED: morphINE PCA 30 MG/30 ML PCA IV PRN (07:45)
[2017-11-30] MEDS ORDERED: HYDROCODONE/APAP 5/325 TAB PO PRN ×2 (07:45→12:05)
[2017-11-30] MEDS ORDERED: oxyCODONE IR 5 MG TAB PO PRN (07:45)
[2017-11-30] MEDS ORDERED: diphenhydrAMINE 25 MG CAP PO PRN (07:45)
[2017-11-30] MEDS ORDERED: LACTULOSE 20 GM/30 ML UDCUP PO PRN (07:45)
[2017-11-30] MEDS ORDERED: ceFAZolin 1 GM VIAL ONE (11:15)
--- NOTE | 2017-11-30 11:53 | SOAPPROG ---
SOAP Progress Note Assessment/Plan: Post Op Visit: S: Awake and alert. Pt with expected lower back pain O: AFVSS/PERRLA/EOMI no droop CN 2-12 grossly intact +lt touch 5/5 BUE/BLE = CDI CLAUDETTE in place A/P: 82 yo male that is s/p L4/5 TLIF -orders in place -call with any questions or concerns -take medications as directed -pt seen by Dr Paredes as garcia -brace when out of bed 11/30/17 11:51 Objective: Vital Signs Temp Pulse Resp BP Pulse Ox 36.7 C 82 16 165/87 H 94 11/30/17 07:25 11/30/17 07:25 11/30/17 07:25 11/30/17 07:25 11/30/17 07:25 ICD10 Worksheet Patient Problems: Problems Problem Status Onset Lumbar radicular pain Acute Lumbar stenosis Acute Intractable low back pain Acute - ICD10 Problem Qualifiers (1) Lumbar stenosis (2) Lumbar radicular pain
[2017-11-30] MEDS ORDERED: fentaNYL 100 MCG/2 ML INJ IVP PRN (12:05)
[2017-11-30] MEDS ORDERED: LABETALOL HCL 5 MG/ML 20 ML MDV IVP PRN (12:05)
[2017-11-30] MEDS ORDERED: OXYCODONE/APAP 5/325 TAB PO PRN (12:05)
--- NOTE | 2017-11-30 12:05 | POSTANESTH ---
Post Anesthetic Evaluation Cardiovascular Status: Normal, Stable, Similar to Pre-Op Cond Respiratory Status: Normal, Stable, Similar to Pre-op Cond. Level of Consciousness/Mental Status: Can Participate in Eval, Alert and Oriented Pain Control: Adequate, Prn Tx Ordered Nausea/Vomiting Control: Adequate, Prn Tx Ordered Complications Possibly Related to Anesthesia: None Noted
[2017-11-30] MEDS ORDERED: ceFAZolin 2 GM/DEXTROSE 100 ML IV SCH (14:00)
[2017-11-30] MEDS ORDERED: ceFAZolin 2 GM/SWFI 2 GM/20 ML SYR IVP SCH (14:30)
[2017-11-30] MEDS: ceFAZolin 2 GM/SWFI 2 GM/20 ML SYR IVP SCH ×2 (16:43→21:36)
[2017-11-30] MEDS: GABAPENTIN 300 MG CAP PO SCH ×2 (17:59→20:14)
[2017-11-30] MEDS: FAMOTIDINE 20 MG TAB PO SCH ×2 (17:59→20:14)
[2017-11-30] MEDS: SENNOSIDES/DOCUSATE SODIUM TAB PO SCH ×2 (17:59→20:14)
[2017-11-30] MEDS: VALSARTAN 40 MG TAB PO SCH (18:00)
[2017-11-30] MEDS: traMADol 50 MG TAB PO SCH ×2 (18:00→20:59)
--- NOTE | 2017-11-30 22:37 | GOP ---
[f rep st] OPERATIVE REPORT DATE OF OPERATION: 11/30/2017 SURGEON: Sonny Paredes MD WEAVER NEEDLE LOOM: Daniel Brenner PA-C PREOPERATIVE DIAGNOSIS: Severe right L4 radiculopathy, severe right foraminal stenosis L4-5, right f ar-lateral disk herniation L4-5, lumbar facet arthropathy L4-5, moderately severe bilateral recess st enosis L4-5. POSTOPERATIVE DIAGNOSIS: Severe right L4 radiculopathy, severe right foraminal stenosis L4-5, right far-lateral disk herniation L4-5, lumbar facet arthropathy L4-5, moderately severe bilateral recess s tenosis L4-5. PROCEDURE PERFORMED: Posterior lateral intervertebral arthrodesis at L4-5 with removal of a right la rge foraminal disk herniation L4-5 (80801); placement of biomechanical intervertebral device L4-5 ([id number]); posterior nonsegmental instrumentation across a single interspace ([id number]); microscope, spinal s tereotactic, same incision, bone graft harvest. FINDINGS: ESTIMATED BLOOD LOSS: 100 cc. INDICATIONS: The patient is an 82-year-old gentleman who was recently hospitalized with terrible rig ht leg pain. He did have a foraminal disk fragment on the right at L4 that I think was the primary c ulprit, but it appeared to be sub annular in location, did not appear to be a completely free fragmen t. There was also facet arthropathy and a mild spondylolisthesis at L4-5 that was subtle on MRI, and I did not think that a far-lateral diskectomy alone would likely yield the relief he was seeking. H rosalinda was completely miserable. I did discuss this approach and felt that he could try a more simple pro cedure and a decompressive procedure alone, but it had a higher probability of requiring a return to the operating room if he failed to improve. I thought a more definitive approach would be to complet gurinder remove the L4-5 facet on the right, completely decompress the exiting L4 nerve root. This too co uld not be guaranteed of success, but I felt this was the most reasonable way to approach this case. He understood the concept of adjacent segment disease, as well as the risks of the surgery including the risk of screw and hardware malposition, nerve injury. He knew there was a chance of needing mor e spine surgery in the future, as well as the risk of infection and bony nonunion. He did want to pr oceed despite these risks. DESCRIPTION OF PROCEDURE: The patient was taken to the operating room, placed in supine position. G eneral anesthesia was begun. He was flipped prone onto the Jayy table. Care was taken to pad all points of contact. His back was sterilely prepped and draped by the surgeon. A localizing x-ray wa s taken. We made a 4.5 cm incision above the L4-5 interspace. The subcutaneous tissue was dissected using Bovie cautery down through the fascia and a subperiosteal dissection was made down to the L4-5 lamina. Self-retaining retractors placed. A localizing x-ray was taken. We denuded the bilateral hypertrophic facets at L4-5 and indeed, the inferior articular process, both on the right and the lef t, the inferior portion of the inferior articular process was actually fractured and there was spondy lolisthesis present. The IAP of L4 was cutting into the lamina of L5 in the usual fashion, and groov ing the lamina in the intersection of the pars interarticularis with the superior articular process o f L5. This was classic as we see in spondylolisthesis cases. We decorticated all visible bone, attached a Stealth reference frame to the L4 spinous process, perfo rmed an O-arm spin and then, using frameless Stealth stereotaxy, we placed pedicle screws bilaterally . Interestingly at L5, the lateral recesses were very deep and there was a very narrow trajectory. We had to begin our screws somewhat laterally, particularly on the left-hand side, and the screw traj ectory was very short. We actually extended our skin incision about 0.5 cm to a centimeter longer to allow a more lateral trajectory on the left-hand side. We were able to get successful screws into a n interpedicular location. There was no violation of the pedicle boundaries and they all stimulated at acceptable levels. There was good bony purchase, although he did have somewhat soft bone as one m gianat expect, given his age. We placed a sheila down on the left, distracted a few millimeters on the left, but we did not place a ro d on the right, so we could do a radical view of the exiting L4 nerve root. We then harvested the in ferior L4 spinous process and the very rostral L5 spinous process for autologous grafting purposes, a nd under the scope we performed bilateral decompressions, really minimal decompression on the left, b ut we did work our way in the lateral recess and indeed on the left-hand side, it had a very deep lef t lateral recess. On the right-hand side, we worked our way down the rostral arch of L5 toward the S AP of L5 and completely removed the right L4-5 facet joint. We identified the exiting L4 nerve root. We also identified the traversing L5 nerve root and even on the right-hand side, the lateral recess was rather deep. The 5 root was actually taut and stretched over a chronic prolapsed anulus at L4-5 and indeed, here as well, we could appreciate the signs of a degenerative spondylolisthesis that we did not appreciate really as significantly on the MRI as we saw now in the OR. Nevertheless, we mobilized the 5 root, incised the lateral L4-5 disk, worked our way out in the hanny en underneath the L4 nerve root, which was very immobile and tight out in the foramen. We removed a large subannular fragment from the L4-5 disk and this allowed the L4 nerve root to drop down into a m ore normal location, it became somewhat loose. We then incised the foraminal portion of the L4-5 dis k and removed the disk and the cartilaginous endplates. We worked carefully out laterally underneath the 4 root to remove all the remaining disk fragments that were present here. We thoroughly probed this. We inspected it with the operating microscope. We roughened the subchondral bone in the inter space and the bony endplates were actually in good shape. We then sized the space and chose a 9 x 28 mm device; it was inserted at L4-5. BMP and bone autograf t were placed into the disk space. The device was elevated under fluoroscopic guidance and once this was done, we then thoroughly probed the area under the exiting L4 nerve root. Again, there were no additional free fragments. We then took a sheila on the right-hand side and placed between the 2 tulips and placed the cap screws down over the sheila; they were torqued according to company specification as were the cap screws on the left-hand side. A final x-ray was taken. We decorticated all remaining posterolateral bone bilaterally, placed bone autograft and BMP posterolaterally bilaterally and then placed a subfascial drain and closed the incision in multiple layers using Vicryl sutures. COMPLICATIONS: None. /[id number]/MODL
[2017-12-01 04:58] LABS: PLATELET COUNT 210 10^3/uL (150-400)
[2017-12-01] MEDS: GABAPENTIN 300 MG CAP PO SCH ×2 (08:08→19:58)
[2017-12-01] MEDS: traMADol 50 MG TAB PO SCH ×2 (08:08→22:27)
[2017-12-01] MEDS: FAMOTIDINE 20 MG TAB PO SCH ×2 (08:08→19:58)
[2017-12-01] MEDS: VALSARTAN 40 MG TAB PO SCH (08:08)
[2017-12-01] MEDS: SENNOSIDES/DOCUSATE SODIUM TAB PO SCH ×2 (08:08→19:58)
--- NOTE | 2017-12-01 08:31 | NEUSURGPN ---
Date of Surgery: 11/30/17 Post Op Day: 1 Assessment/Plan: 82 yo male that is s/p L4/5 TLIF -Xrays later today -PT.OT -take medications as directed if needed -brace when out of bed -home later today vs. tomorrow -sonlai Paredes Subjective: doing quite well, not quite ready to go home at this point but not requiring any pain meds. Ambulating is still difficult. Leg pain is better. Objective: NAD, AAOx3 VSS EOMI, clouding over left pupil speech clear and fluent MAEx4, strength full 5/5 SILT Urinary Catheter in Place: No - Physician Discussed Patient with : [facility] Physical Exam - Vitals, I&O, Labs I and O 11/30/17 12/01/17 12/02/17 05:59 05:59 05:59 Intake Total 1950 Output Total 1120 Balance 830 Weight 72.75 kg Intake: Oral (ml) 200 IV Intake (ml) 1750 Output: Urine (ml) 450 Urinal 450 Estimated Blood Loss (ml) 200 CLAUDETTE Drain Output (ml) 470 #1 Left Posterior Back 470 Other: Intake Quantity Yes Sufficient Number of Voids Toilet 1 Vital Signs Temp Pulse Resp BP Pulse Ox 36.7 C 78 16 131/82 H 95 12/01/17 07:25 12/01/17 07:25 12/01/17 07:25 12/01/17 07:25 12/01/17 07:25 Laboratory Results 12/01/17 04:20 12/01/17 04:20 ICD10 Worksheet Patient Problems: Problems Problem Status Onset Lumbar radicular pain Acute Lumbar stenosis Acute Intractable low back pain Acute
--- NOTE | 2017-12-01 13:51 | ASMTLACE ---
KATY Acuity / Level of Answers: Yes Care: Did the patient have an inpatient admission? # of Emergency department Answers: 1-2 visits in the last 6 months Score: 4 Date Signed: 12/01/2017 01:51 PM Electronically Signed By:China Vera RN
--- NOTE | 2017-12-01 13:57 | ASMTCMCOM ---
CM Note CM Note Notes: Chart reviewed. Patient s/p lumbar back surgery. PT recommending [facility]. Patient is current with services from [facility]. OT notes pending. Will place referral via allscripts and nitify [facility] regulation supervisor. Patient may dc later today or tomorrow. CM to follow Date Signed: 12/01/2017 01:56 PM Electronically Signed By:China Vera RN
[2017-12-02 00:06] VITALS: RESP 16
[2017-12-02 08:16] VITALS: BP 125/80; PULSE 103; TEMP 97.9; O2SAT 94
[2017-12-02] MEDS: SENNOSIDES/DOCUSATE SODIUM TAB PO SCH (08:25)
[2017-12-02] MEDS: traMADol 50 MG TAB PO SCH (08:26)
[2017-12-02] MEDS: FAMOTIDINE 20 MG TAB PO SCH (08:27)
[2017-12-02] MEDS: VALSARTAN 40 MG TAB PO SCH (08:27)
[2017-12-02] MEDS: GABAPENTIN 300 MG CAP PO SCH (08:30)
--- NOTE | 2017-12-02 09:54 | NEUSURGPN ---
Date of Surgery: 11/30/17 Post Op Day: 2 Assessment/Plan: 82 yo male that is s/p L4/5 TLIF -Xrays with stable hardware -PT.OT -take medications as directed if needed -brace when out of bed -drain likely out before DC. -home later today -sonali Paredes Subjective: doing well, 5-6/10 max pain, usually 1-2 out of 10. Objective: NAD, AAOx3 VSS EOMI, clouding over left pupil speech clear and fluent MAEx4, strength full 5/5 SILT - Physician Discussed Patient with : [facility]surgery Physical Exam - Vitals, I&O, Labs I and O 12/01/17 12/02/17 12/03/17 05:59 05:59 05:59 Intake Total 1950 300 Output Total 1120 720 Balance 830 -720 300 Weight 72.75 kg Intake: Oral (ml) 200 300 IV Intake (ml) 1750 Output: Urine (ml) 450 500 Toilet 0 Urinal 450 500 Estimated Blood Loss (ml) 200 CLAUDETTE Drain Output (ml) 470 220 #1 Left Posterior Back 470 220 Other: Intake Quantity Yes Yes Sufficient Number of Voids Toilet 1 3 1 Number of Stools Toilet 2 Vital Signs Temp Pulse Resp BP Pulse Ox 36.6 C 103 H 16 125/80 H 94 12/02/17 08:00 12/02/17 08:00 12/02/17 08:00 12/02/17 08:00 12/02/17 08:00 Laboratory Results 12/01/17 04:20 12/01/17 04:20 ICD10 Worksheet Patient Problems: Problems Problem Status Onset Lumbar radicular pain Acute Lumbar stenosis Acute Intractable low back pain Acute
--- NOTE | 2017-12-02 13:51 | PDIAF ---
- Diagnosis Code Status: Full Code - Medication Management Discharge Medications: Medications to Continue on Transfer Gabapentin [Neurontin 300 MG (*)] 300 mg PO BID 11/11/17 [Last Taken 11/10/17] Valsartan [Diovan (*)] 40 mg PO DAILY 11/27/17 [Last Taken Unknown] Acetaminophen [Tylenol ES 500 mg (*)] 1,000 mg PO Q8 PRN tab 12/02/17 [Last Taken Unknown] Methocarbamol [Robaxin 750 mg (*)] 750 mg PO QID PRN tab 12/02/17 [Last Taken Unknown] Sennosides/Docusate Sodium [Senokot-S] 1 - 2 tab PO BID tab 12/02/17 [Last Taken Unknown] oxyCODONE IR [Oxycodone Ir (*)] 5 - 10 mg PO Q4HRS PRN tab 12/02/17 [Last Taken Unknown] Discharge Medications: Refer to the Discharge Home Medication list for PRN reason. - Orders Services needed: Home Care, Physical Therapy, Occupational Therapy Home Care Face to Face: I certify that this patient was under my care and that I had the required [id number] encounter meeting the encounter requirements on the discharge day. My findings support the fact that the patient is homebound as defined in Home Care Face to Face Continued: CMS Chapter 7 Medicare Benefits Manual 30.1.1 , The condition of the patient is such that there exists a normal inability to leave home and consequently, leaving home would require a considerable and taxing effort. - Follow Up Care Current Providers and Referrals: Daniel Alvarado, [Primary Care Provider] -
--- NOTE | 2017-12-02 14:23 | ASMTCMCOM ---
CM Note CM Note Notes: Patient medically cleared for discharge to home. Final orders to [facility] via allscripts and spoke to on RN. Patient is current with their service. CM available should other needs arise. Date Signed: 12/02/2017 02:22 PM Electronically Signed By:China Vera RN
--- NOTE | 2017-12-02 15:45 | ASDISCHSUM ---
Discharge Information Plan Status:Home with Home Health Medically Cleared to Leave:12/01/2017 Discharge Date:12/02/2017 03:00 PM CM D/C Disposition:Home Health Service ADT D/C Disposition:[id number] Projected Discharge Date:12/02/2017 11:00 AM Transportation at D/C:Family Discharge Delay Reason: Follow-Up Date:12/02/2017 11:00 AM Discharge Slot: Final Diagnosis: Placement Information Referral Type:*Home Health Care Services Referral ID:[id number] Provider Name:[facility] Address 1:[address] [place] [address] Address 2: City:[place] Selection Factors: State:[place] Patient Contact Information Contact Name:SINAN Relationship: Address:[address] Work Phone: [facility]:[place] Alternate Phone: State/Zip Code:[place] [address] Email: Financial Information Financial Class:Medicare Med[employer]acs Primary Plan Desc:[facility] [employer] Primary Plan Number:[id number] Secondary Plan Desc: Secondary Plan Number: Assessment Information LACE LACE Acuity / Level of Answers: Yes Care: Did the patient have an inpatient admission? # of Emergency department Answers: 1-2 visits in the last 6 months Score: 4 Date Signed: 12/01/2017 01:51 PM Electronically Signed By:China Vera RN [facility] CM Progress Note CM Note CM Note Notes: Chart reviewed. Patient s/p lumbar back surgery. PT recommending [facility]. Patient is current with services from [facility]. OT notes pending. Will place referral via allscripts and nitify [facility] production aide. Patient may dc later today or tomorrow. CM to follow Date Signed: 12/01/2017 01:56 PM Electronically Signed By:China Vera RN [facility] CM Progress Note CM Note CM Note Notes: Patient medically cleared for discharge to home. Final orders to [facility] via allscripts and spoke to on RN. Patient is current with their service. CM available should other needs arise. Date Signed: 12/02/2017 02:22 PM Electronically Signed By:China Vera RN Intervention Information Intervention Type:*IM-Signed Date of Service:12/02/2017 02:15 PM Patient Type:Inpatient Staff Member:ALLIE Vera Margaret Hours: Discipline: Severity: Comment:
[2017-12-03] MEDS ORDERED: ENOXAPARIN 40 MG/0.4 ML SYR SC SCH (09:00)
== END 2017-12-02 15:00 | disposition home health service (06) | DRG 460 ==
LOC: F3N 06:27
PROVIDERS: ADMIT Neurological Surgery; ATTEND Neurological Surgery
PROC: 3E0U0GB Introduction of Recombinant Bone Morphogenetic Protein into Joints, Open Approach (ICD-10-PCS; principal; 2017-11-30 07:30)
PROC: 01NB0ZZ Release Lumbar Nerve, Open Approach (ICD-10-PCS; principal; 2017-11-30 07:30)
PROC: 0ST20ZZ Resection of Lumbar Vertebral Disc, Open Approach (ICD-10-PCS; principal; 2017-11-30 07:30)
PROC: 0SG00AJ Fusion of Lumbar Vertebral Joint with Interbody Fusion Device, Posterior Approach, Anterior Column, Open Approach (ICD-10-PCS; principal; 2017-11-30 07:30)
PROC: 0QB00ZZ Excision of Lumbar Vertebra, Open Approach (ICD-10-PCS; principal; 2017-11-30 07:30)
DX: M51.26 Other intervertebral disc displacement, lumbar region (principal); M43.16 Spondylolisthesis, lumbar region; M99.73 Connective tissue and disc stenosis of intervertebral foramina of lumbar region; M51.16 Intervertebral disc disorders with radiculopathy, lumbar region
CPT/HCPCS: 97116-GP; 97161-GP; 97165-GO; 97530-GP; 97535-GO; C1713; G8978-GP-CJ; G8987-GO-CJ; G8988-GO-CI; J0171; J0690; J2001; J2704; J3010

== ENCOUNTER → 2018-01-17 | Outpatient (CLI) | payer OTHER | LOC: FIMAGING 10:59 | PROVIDERS: ATTEND Physician Assistant | DX: Z98.1 Arthrodesis status (principal); M51.36 Other intervertebral disc degeneration, lumbar region ==

== ENCOUNTER 2018-01-30 07:31 | Inpatient (IN) | payer OTHER ==
[~2018-01-30 07:31] MED LIST: BUPI/epINEPH/KETOROLAC IU ONE; POVIDONE-IODINE 20 ML in SODIUM CL IRRIG SOLUTION 500 ML IRR ONE; ROPIVACAINE 0.2% 80 MG, EPINEPHrine 0.2 MG, KETOROLAC TROMETHAMINE 30 MG in SYRINGE 0 ML IU ONE; TRANEXAMIC ACID 1,000 MG in NS (SYRINGE) 50 ML IV ONE; ceFAZolin 1 GM/5 ML SYR ONE
[2018-01-30] MEDS ORDERED: FAMOTIDINE 20 MG TAB PO ONE (07:48)
[2018-01-30] MEDS ORDERED: ONDANSETRON 4 MG/2 ML VIAL IVP ONE (07:48)
[2018-01-30] MEDS ORDERED: GABAPENTIN 300 MG CAP PO ONE (07:48)
[2018-01-30] MEDS ORDERED: ceFAZolin 2 GM/SWFI 2 GM/20 ML SYR IVP ONE (07:48)
[2018-01-30] MEDS ORDERED: ACETAMINOPHEN 325 MG TAB PO ONE (07:48)
[2018-01-30] MEDS ORDERED: DEXAMETHASONE 4 MG/ML VIAL IVP ONE (07:48)
[2018-01-30] MEDS ORDERED: LIDOCAINE 1% 2 ML INJ ID PRN (07:59)
[2018-01-30] MEDS ORDERED: LR 1,000 ML IV ONE (07:59)
[2018-01-30] MEDS ORDERED: FAMOTIDINE 20 MG TAB ONE (08:58)
--- NOTE | 2018-01-30 09:07 | PDHPUP ---
History & Physical Update H&P update statement: This history and physical update is based on an assessment of the patient which was completed after admission or registration (within 24 hours), but prior to the surgery/procedure. H&P update: H&P reviewed & patient examined
--- NOTE | 2018-01-30 09:53 | PDANEPAE ---
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 - Neurologic History Hx Cerebrovascular Accident: No Hx Seizures: No Hx Dementia: No - Endocrine History Hx Diabetes: No - Renal History Hx Renal Disorders: Yes Renal History Comment: 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 CATARACT. EYE SURG. HERNIA REPAIR. R NEPHRECTOMY. PNEUMOTHORAX. TONSILLECTOMY ANE Review of Systems Review of Systems: - Exercise capacity METS (RN): 3 METS ANE Patient History - Allergies Allergies/Adverse Reactions: No Known Allergies Allergy (Verified 01/30/18 08:12) - Home Medications Home Medications: Valsartan/Hctz [Diovan Hct 80/12.5 mg (*)] 0.5 each PO DAILY 01/08/18 [Last Taken 01/29/18 08:00] - NPO status NPO Since - Liquids (Date): 01/30/18 NPO Since - Liquids (Time): 06:45 NPO Since - Solids (Date): 01/29/18 NPO Since - Solids (Time): 21:00 - Smoking Hx Smoking Status: Former smoker ANE Labs/Vital Signs - Vital Signs Blood Pressure: 155/73 Heart Rate: 69 Respiratory Rate: 16 O2 Sat (%): 93 Height: 172.72 cm Weight: 68.039 kg ANE Physical Exam - Airway Neck exam: FROM Mallampati Score: Class 2 Mouth exam: normal dental/mouth exam - Pulmonary Pulmonary: no respiratory distress - Cardiovascular Cardiovascular: regular rate and rhythym - ASA Status ASA Status: III ANE Anesthesia Plan Anesthesia Plan: spinal
[2018-01-30] MEDS ORDERED: PROPOFOL/EMULSION 500 MG/50 ML BOTTLE IV ONE (09:59)
[2018-01-30] MEDS ORDERED: LIDOCAINE 2% 100 MG/5 ML SYR ONE (10:08)
--- NOTE | 2018-01-30 11:24 | POSTOPPROG ---
Post Op Note Date of Operation: 01/30/18 Surgeon: Neil Melvin Shirt Line Operator: Lukas Anesthesiologist: Dr. Herber Patton Anesthesia: IV Sedation, Spinal Post-op Diagnosis: Right hip severe degenerative arthritis Procedure: Right total hip arthroplasty Inf/Abcess present in the surg proc area at time of surgery?: No EBL: 100-500
[2018-01-30] MEDS ORDERED: PROMETHAZINE HCL 25 MG SUPPR PR PRN (11:41)
[2018-01-30] MEDS ORDERED: TEMAZEPAM 15 MG CAP PO PRN (11:41)
[2018-01-30] MEDS ORDERED: diphenhydrAMINE 25 MG CAP PO PRN (11:41)
[2018-01-30] MEDS ORDERED: POLYETHYLENE GLYCOL 3350 17 GM PKT PO PRN (11:41)
[2018-01-30] MEDS ORDERED: PROMETHAZINE HCL 25 MG/ML INJ IVP PRN (11:41)
[2018-01-30] MEDS ORDERED: CYCLOBENZAPRINE 10 MG TAB PO PRN (11:41)
[2018-01-30] MEDS ORDERED: BISACODYL 10 MG SUPP PR PRN (11:41)
[2018-01-30] MEDS ORDERED: LACTULOSE 20 GM/30 ML UDCUP PO PRN (11:41)
[2018-01-30] MEDS ORDERED: DIPHENOXYLATE/ATROPINE LOMOTIL 1 TAB PO PRN (11:41)
[2018-01-30] MEDS ORDERED: KETOROLAC 30 MG/1 ML SDV IVP PRN (11:41)
[2018-01-30] MEDS ORDERED: oxyCODONE IR 5 MG TAB PO PRN (11:41)
[2018-01-30] MEDS ORDERED: ONDANSETRON 4 MG/2 ML VIAL IVP PRN ×2 (11:41→11:43)
[2018-01-30] MEDS ORDERED: traMADol 50 MG TAB PO PRN (11:41)
[2018-01-30] MEDS ORDERED: MAGNESIUM HYDROXIDE 30 ML UDCUP PO PRN (11:41)
[2018-01-30] MEDS ORDERED: NS 500 ML IV PRN (11:41)
[2018-01-30] MEDS ORDERED: METOCLOPRAMIDE 10 MG/2 ML VIAL IVP PRN (11:41)
[2018-01-30] MEDS ORDERED: ONDANSETRON DISINTEGRATING 4 MG TAB PO PRN (11:41)
[2018-01-30] MEDS ORDERED: NALOXONE HCL 0.4 MG/ML INJ IVP PRN (11:43)
[2018-01-30] MEDS ORDERED: ALBUTEROL 3 ML DEYVIAL IH PRN (11:43)
[2018-01-30] MEDS ORDERED: epHEDrine SULFATE 10 MG/ML SYR IVP PRN (11:43)
[2018-01-30] MEDS ORDERED: fentaNYL 100 MCG/2 ML INJ IVP PRN (11:43)
[2018-01-30] MEDS ORDERED: PHENYLEPHRINE HCL 100 MCG/ML SYR IVP PRN (11:43)
--- NOTE | 2018-01-30 11:43 | POSTANESTH ---
Post Anesthetic Evaluation Cardiovascular Status: Similar to Pre-Op Cond Respiratory Status: Similar to Pre-op Cond. Level of Consciousness/Mental Status: Alert and Oriented Pain Control: Adequate, Prn Tx Ordered Nausea/Vomiting Control: Adequate, Prn Tx Ordered Complications Possibly Related to Anesthesia: None Noted
--- NOTE | 2018-01-30 11:58 | PDMN ---
Medical Necessity Medical necessity: [facility]- S560 hip arthroplasty INPT only- R VENANCIO
[2018-01-30] MEDS ORDERED: LR 1,000 ML IV SCH (12:00)
--- NOTE | 2018-01-30 12:24 | GOP ---
[f rep st] OPERATIVE REPORT DATE OF OPERATION: 01/30/2018 SURGEON: Neil Melvin MD LANDCARE FACILITATOR: 1. Miguel A Cobb, PAC. 2. Roderick Gracia [facility]. ANESTHESIA: A combination of Marcaine spinal and IV sedation. ANESTHESIOLOGIST: Herber Patton MD. PREOPERATIVE DIAGNOSIS: Right hip severe degenerative arthritis. POSTOPERATIVE DIAGNOSIS: Right hip severe degenerative arthritis. PROCEDURE PERFORMED: A right total hip arthroplasty, ceramic femoral head on highly cross-linked richard yethylene cup liner. FINDINGS: ESTIMATED BLOOD LOSS: 300 mL. The sponge and needle count were correct on 2 occasions. I used a [place] Tritanium hemispherical solid-backed acetabular shell with an outside diameter of 58 mm. The liner was a Tereso X3 10-degree lipped highly cross-linked liner with an inside diameter o f 36 mm. The femoral component was a press-fit Tereso high-offset Accolade II stem in a size 6. Th e femoral head was a Tereso Biolox Delta ceramic head with a neck length of +2.5 mm and an outside d iameter of 36 mm. Aaron Cobb and Roderick Gracia acted as surgical assistants. Their assistance was a medical necess ity for safe completion of the procedure. DESCRIPTION OF PROCEDURE: The patient was given 2 g of IV Ancef preoperatively within 60 minutes of surgery. He also received IV tranexamic acid at a dose of 1000 mg. He was placed on the operating r oom and given spinal anesthesia with Marcaine by Dr. Patton. He was then placed supine and given I V sedation. The Rivera catheter was not used. He wore a AARON stocking and SCD on the nonoperative leg . He was rolled to the left lateral decubitus position. The position was secured with the pegboard table attachment. An axillary roll was used, and all pressure points were carefully padded. I was c areful to lock his pelvis in a rigid vertical position. His perineum was isolated with plastic adhes drake drapes. The right hip and right lower extremity were prepped with ChloraPrep. They were draped free using sterile sheets, stockinette, and Ioban plastic drapes. The World [employer] Organization time-out was performed to verify the correct patient identity and the c orrect surgical side and site. The [place] time-out was also performed. I made a 5-inch straight oblique posterolateral hip skin incision. The subcutaneous tissues were sha rply divided, and hemostasis was obtained using electrocautery. The fascia reddy was identified and s plit along the axis of its fibers. I then curved posteriorly and proximally, and split the fascia of the gluteus marilin, and bluntly split the muscle fibers in line with their orientation. The [facility] self-retaining retractor was inserted. His sciatic nerve was located, partially exposed, and prot ected throughout the procedure. The external rotators and the posterior hip capsule were divided as separate layers at the base of the femoral neck, tagged, and reflected posteriorly. A smooth 1/8-inc h Steinmann pin was inserted vertically into the ilium, superior to the acetabulum. A 1/8-inch drill bit was inserted vertically into the greater trochanter and parallel to the first pin. The distance between the 2 was measured for leg length reference. His femoral head was dislocated posteriorly. Severe degenerative changes were present on the femoral head. The femoral neck was osteotomized at t he appropriate level and inclination. I was careful to preserve all the posterior capsule and most of the anterior capsule. The remnant of his damaged labrum was excised. I prepared the femur first. This allowed me to drafter assistant the amount of natural femoral neck anteversion. This, in turn, allowed me to later determine the correct amount of cup anteversion. He had only ab out 8 or 10 degrees of natural femoral neck anteversion. The canal was opened laterally with a box c hisel. I hand broached sequentially up to a size 6 broach. I used a Tereso Accolade II high-offset broach in a size 6 as a trial stem. I was careful to lateralize adequately. Appropriate retractors were inserted to expose the acetabulum. The acetabulum was reamed sequentiall y up to 57 mm. He had a 1 cm cyst superiorly and anteriorly in the acetabulum. I curetted the soft fibrous material from the cyst. I created a slurry of bone graft by reaming the cut surface of the f emoral head. The bone graft was packed into the cyst. I selected a 58 mm Tereso Tritanium solid-ba cked hemispherical shell. This was tapped securely into place in the proper degree of inclination an d anteversion. I used the transverse acetabular ligament and other acetabular bony landmarks to help me properly orient the cup. Fixation was tight, and I did not think supplemental screws were necess paulina. I inserted a screw-in metal dome hole plug. I performed a series of trial reductions to determine length and stability. I concluded that the siz e 6 stem with a +2.5 mm neck length, with a high-offset design, and a 36 mm head with a 10-degree lip liner, gave me the proper combination of appropriate length and good anterior and posterior stabilit y. I used a lip liner because he did not have much anteversion on the femoral neck. He was a few mi llimeters short preoperatively, and I was intentionally lengthening him. The 10-degree lip Tereso X3 highly cross-linked polyethylene liner was inserted and tapped securely into place. The [place] Accolade II high-offset stem in a size 6 was inserted press-fit and was very tight. I did 1 final trial reduction and confirmed that the +2.5 mm neck length with a 36 mm head w as the proper combination. The Tereso Biolox Delta ceramic head, with an outside diameter of 36 mm and a neck length of +2.4 mm, was tapped securely onto the clean trunnion. The acetabulum irrigated and cleaned, and the hip was reduced 1 final time. He had excellent anterior and posterior stability and appropriate lengthening. 40 mL of the joint anesthetic cocktail was injected into the capsule, the deep musculature, and the s ubcutaneous tissues around the skin edges. The joint was thoroughly irrigated 1 final time with a di lute Betadine solution. His sciatic nerve was reinspected and looked unharmed. The external rotators and the posterior hip capsule were repaired in separate layers with #2 FiberWir e sutures through drill holes in the greater trochanter. This provided a strong posterior capsular a nd external rotator repair. The fascia reddy was closed first with two #2 [id number] FiberWire s utures, followed by a running #2 barbed Ethicon Stratafix PDO suture. The subcutaneous tissues were closed with a running 0 barbed Ethicon Stratafix Monoderm suture. The skin was closed with a running 3-0 barbed Ethicon Stratafix Monoderm subcuticular suture. The skin edges were reapproximated and s ealed with Dermabond glue. The wound was covered with a large piece of Mepilex sterile surgical dres sing. The Mepilex sacral dressing was also applied. A long-leg AARON stocking and SCD were applied to his right lower extremity. He wore a stocking and SC D on the opposite leg during the procedure. An abduction pillow was placed between his knees. He wa s awakened from anesthesia and rolled to the supine position on his [facility]. He was taken to PACU in satisfactory condition. There were no recognized intraoperative complications. /[id number]/MODL
[2018-01-30] MEDS ORDERED: ceFAZolin 2 GM/DEXTROSE 100 ML IV SCH (14:00)
[2018-01-30] MEDS: ACETAMINOPHEN 325 MG TAB PO SCH ×3 (14:12→23:28)
[2018-01-30] MEDS: ceFAZolin 2 GM/SWFI 2 GM/20 ML SYR IVP SCH (18:35)
[2018-01-30] MEDS: SENNOSIDES/DOCUSATE SODIUM TAB PO SCH (19:55)
[2018-01-30] MEDS: FAMOTIDINE 20 MG TAB PO SCH (19:55)
[2018-01-30] MEDS: ASPIRIN 325 MG TAB PO SCH (19:55)
[2018-01-31] MEDS: ceFAZolin 2 GM/SWFI 2 GM/20 ML SYR IVP SCH (03:03)
[2018-01-31] MEDS: ACETAMINOPHEN 325 MG TAB PO SCH ×2 (05:57→12:21)
--- NOTE | 2018-01-31 07:24 | SOAPPROG ---
SOAP Progress Note Assessment/Plan: Assessment: Afebrile. Very little pain. He has been up and walking in the gonz[place]. His dressing is dry. Sciatic nerve intact. H&H are good. Postop films look excellent. Plan: Continue physical therapy today. Discharged later today. Outpatient physical therapy at my office. 01/31/18 07:22 Objective: Vital Signs Temp Pulse Resp BP Pulse Ox 36.4 C 81 18 107/60 93 01/31/18 03:10 01/31/18 03:10 01/31/18 03:10 01/31/18 03:10 01/31/18 03:10 Laboratory Results 01/31/18 04:45 01/30/18 01/31/18 02/01/18 05:59 05:59 05:59 Intake Total 1435 Output Total 1504 Balance -69 ICD10 Worksheet Patient Problems: Problems Problem Status Onset Osteoarthritis of right hip Acute Intractable low back pain Acute Lumbar radicular pain Acute Lumbar stenosis Acute
--- NOTE | 2018-01-31 07:48 | GDS ---
[f rep st] DISCHARGE SUMMARY ADMISSION DIAGNOSIS: Right hip severe degenerative arthritis. DISCHARGE DIAGNOSIS: Right hip severe degenerative arthritis. OPERATIONS PERFORMED: 01/30/2018, a right total hip arthroplasty, ceramic femoral head on highly farmworker field crop ss-linked polyethylene cup liner. Surgeon was Olegario. Postoperative complications, none. CONDITION ON DISCHARGE: Improved. DESCRIPTION OF HOSPITAL COURSE: The patient was admitted to the hospital on the morning of surgery. His admission CBC, electrolytes, BUN, and creatinine were normal. The same day, under a combination of Marcaine, spinal, and IV sedation, he underwent a right total hip arthroplasty. Postoperatively, he was treated with multimodal DVT prophylaxis, including aspirin. On the first postoperative day, his hemoglobin and hematocrit were 10.4 and 31.4. He was seen by Physical Therapy and made good prog ress with ambulation and stairs. By the time of discharge, he was afebrile, his wound was dry, and h e was independent walking with a walker. DISPOSITION: The patient is discharged to his home in the care of his . Continue aspirin 325 mg p.o. daily for 21 days. He has prescriptions for Celebrex, oxycodone, and tramadol for pain control . He will go to outpatient physical therapy in my office in 7-10 days. I will see him back in the o ffice on February 18, 2018. If there are any problems, he is to call me at the office. Copy requested to: CYRUS Gonzalez /[id number]/MODL
[2018-01-31] MEDS ORDERED: VALSARTAN/HCTZ 80-12.5MG TAB PO SCH (09:00)
[2018-01-31] MEDS: SENNOSIDES/DOCUSATE SODIUM TAB PO SCH (09:32)
[2018-01-31] MEDS: FAMOTIDINE 20 MG TAB PO SCH (09:32)
[2018-01-31] MEDS: ASPIRIN 325 MG TAB PO SCH (09:32)
--- NOTE | 2018-01-31 10:19 | ASMTCMCOM ---
CM Note CM Note Notes: Pt s/p R total hip. PT rec outpatient. Pt medically stable for d/c with spouse support, no CM d/c needs identified. Date Signed: 01/31/2018 10:18 AM Electronically Signed By:FAUSTO Amezquita
[2018-01-31 11:31] VITALS: BP 119/58
== END 2018-01-31 14:38 | disposition home or self-care (01) | DRG 470 ==
LOC: F3N 07:31
PROVIDERS: ADMIT Orthopaedic Surgery; ATTEND Orthopaedic Surgery
PROC: 0SR904Z Replacement of Right Hip Joint with Ceramic on Polyethylene Synthetic Substitute, Open Approach (ICD-10-PCS; principal; 2018-01-30 09:15)
DX: M16.11 Unilateral primary osteoarthritis, right hip (principal); I10 Essential (primary) hypertension; Z98.1 Arthrodesis status; Z85.46 Personal history of malignant neoplasm of prostate; Z87.891 Personal history of nicotine dependence
CPT/HCPCS: 97110-GP; 97116-GP; 97161-GP; 97165-GO; G8978-GP-CI; G8978-GP-CJ; G8979-GP-CI; G8980-GP-CI; G8987-GO-CI; G8988-GO-CI; J0171; J0690; J1100; J1885; J2001; J2370; J2405; J2704

== ENCOUNTER → 2018-11-06 | Outpatient (CLI) | payer OTHER | LOC: FIMAGING 14:00 | PROVIDERS: ATTEND Physician Assistant | DX: M51.16 Intervertebral disc disorders with radiculopathy, lumbar region (principal); Z98.1 Arthrodesis status ==

== ENCOUNTER 2018-11-18 08:41 | Observation (INO) | payer OTHER ==
[2018-11-18] MEDS ORDERED: diphenhydrAMINE 25 MG CAP PO ONE ×2 (08:46→09:04)
[2018-11-18] MEDS ORDERED: FAMOTIDINE 20 MG TAB PO ONE (08:46)
[2018-11-18] MEDS ORDERED: DIAZEPAM 5 MG TAB PO ONE (08:46)
[2018-11-18] MEDS ORDERED: NS 1,000 ML IV ONE (08:46)
[2018-11-18] MEDS ORDERED: ASPIRIN EC 325 MG TAB PO ONE ×2 (08:46→09:05)
[2018-11-18] MEDS ORDERED: MIDAZOLAM 2 MG/2 ML VIAL ONE (08:54)
[2018-11-18] MEDS ORDERED: LIDOCAINE 1% 300 MG/30 ML SDV ONE (08:54)
[2018-11-18] MEDS ORDERED: fentaNYL 100 MCG/2 ML INJ ONE (08:54)
[2018-11-18] MEDS ORDERED: IOHEXOL 350mgI/ML (OMNIPAQUE) 150 ML BTL IV ONE ×2 (08:55→10:30)
[2018-11-18] MEDS ORDERED: CLOPIDOGREL BISULFATE 75 MG TAB PO ONE (09:00)
[2018-11-18] MEDS ORDERED: FAMOTIDINE 20 MG TAB ONE (09:04)
[2018-11-18] MEDS ORDERED: DIAZEPAM 5 MG TAB ONE (09:05)
--- NOTE | 2018-11-18 09:07 | CPEKG ---
Test Reason : OPEN Blood Pressure : / mmHG Vent. Rate : 068 BPM Atrial Rate : 067 BPM P-R Int : 152 ms QRS Dur : 105 ms QT Int : 421 ms P-R-T Axes : 071 -51 035 degrees QTc Int : 448 ms Sinus rhythm Left anterior fascicular block Probable left ventricular hypertrophy Confirmed by Yousif Joseph ([id number]) on 11/18/2018 9:06:54 AM Referred By: Dandy Parham Confirmed By:Yousif Joseph
--- NOTE | 2018-11-18 09:09 | PDPROPOC ---
Sedation Plan of Care Sedation Plan of Care: mental status noted, patient educated of risks, benefits , alternatives, patient can tolerate sedation ASA Classification: ASA 2 Planned drugs: fentanyl, midazolam Mallampati Score: Class 2 Mallampati Reference Image: Patient passed 3-3-2 rule?: Yes
[2018-11-18 09:21] LABS: PLATELET COUNT 241 10^3/uL (150-400)
[2018-11-18 09:36] LABS: INR 1.08 (0.83-1.16); PROTIME(PATIENT) 14.2 SEC (12.0-15.0)
[2018-11-18] MEDS ORDERED: ADENOSINE 90 MG/30 ML VIAL IV ONE ×2 (10:10→10:33)
[2018-11-18] MEDS ORDERED: NITROGLYCERIN 1,500 MCG/15 ML VIAL MISC ONE (10:10)
[2018-11-18] MEDS ORDERED: BIVALIRUDIN 250 MG/5 ML VIAL IV ONE (10:10)
[2018-11-18] MEDS ORDERED: TEMAZEPAM 15 MG CAP PO PRN (11:27)
[2018-11-18] MEDS ORDERED: NITROGLYCERIN 0.4 MG BTL SL PRN (11:27)
[2018-11-18] MEDS ORDERED: OXYCODONE/APAP 5/325 TAB PO PRN (11:27)
[2018-11-18] MEDS ORDERED: ONDANSETRON 4 MG/2 ML VIAL IVP PRN (11:27)
[2018-11-18] MEDS ORDERED: ATROPINE SULFATE 1 MG/10 ML SYR IVP PRN (11:27)
[2018-11-18] MEDS ORDERED: LORazepam 2 MG/ML INJ IVP PRN (11:27)
[2018-11-18] MEDS ORDERED: HYDROCODONE/APAP 5/325 TAB PO PRN (11:27)
[2018-11-18] MEDS ORDERED: ACETAMINOPHEN 500 MG TAB PO PRN (11:29)
--- NOTE | 2018-11-18 12:52 | CPIP ---
[f rep st] INVASIVE CARDIAC PROCEDURE DATE OF PROCEDURE: 11/18/2018 INDICATION FOR PROCEDURE: Severe symptomatic aortic stenosis, pre TAVR. PROCEDURES: 1. Left groin sheathogram, arteriogram, 7-Tajik sheath, left common femoral vein. 2. Right heart catheterization with Leander-Suha catheter. 3. Bilateral coronary selective angiography. 4. Fractional flow reserve of diagonal 1 artery. 5. Fractional flow reserve of mid left anterior descending. 6. Fractional flow reserve of right coronary artery. 7. Percutaneous coronary intervention of mid left circumflex artery utilizing Synergy 3.[address] ug-eluting stent. HISTORY: Briefly, this is an 83-year-old male with a history of worsening fatigue as an outpatient. The patient was found to have critical aortic stenosis. The patient was seen by Dr. Johnson from [facility] who deemed the patient to be a suitable candidate for TAVR, if no significant multivessel yari nary artery disease was present that would require a bypass. DESCRIPTION OF PROCEDURE: After informed consent, the patient was brought to [facility] where the left groin was prepped and draped in sterile fashion. Using lidocaine, a short 6-Tajik sheath into the left common femoral artery verified angiographically. Through the 7-Tajik sheath le ft common vein, a Leander-Suha catheter was then advanced. Wedge pressure was a mean of 6, A-wave 8, V- wave of 7, PA pressure systolic 33, diastolic 11, mean of 18. RV pressure systolic 27, diastolic 1, end of 3. RA pressure was A-wave 2, V-wave of 0. Cardiac output was measured to be 5.1 by Chay with index of 2.8. AO sat was 89% with a PA sat of 70%. Leander-Suha catheter was then removed. A JL4 cat heter was then advanced to the left coronary artery. The left coronary artery showed normal left elizabeth n. There was a small ramus intermedius which was healthy and free of disease. The circumflex had mi ld plaque disease in its proximal course. There was at the takeoff of the AV groove circumflex as we ll as a larger marginal artery, a focal area of approximately 80% to 90% stenosis. Distally, this ve ssel appeared to be widely patent. The LAD was a long vessel which tracked in the apex. The LAD had what appeared to be at least 40% to 50% disease in its mid portion. Distally, the vessel appeared t o be widely patent. Just before this lesion in the LAD, there was a diagonal artery, medium-sized, w hich had at least 40% to 50% ostial disease. After these images were obtained, the JL4 catheter was removed. A JR4 catheter was advanced to the right coronary artery. Images of the right coronary art niels revealed normal ostial RCA. The proximal RCA had smooth tubular 50% disease. There was another lesion in the mid RCA for at least 50%. Distally, RPD and RPLS appeared to be healthy and free of di sease. After these images were obtained, the JR4 catheter was removed. I then had a discussion with both Dr. Johnson and Dr. Lucas from [facility] about moving forward with potential further investigat ion, interrogation of these vessel. Both surgeons agreed that interrogation of the LAD would be jackie anted to make sure the patient does not have critical multivessel disease which would necessitate CAB G/AVR versus TAVR alone versus single-vessel PCI and TAVR. INTERVENTIONAL REPORT: At this time, the patient was started on an Angiomax bolus and drip. The pat ient had been administered 600 Plavix p.o. Utilizing the EBU 3.5 guide, which was normalized in the aorta with the FFR wire being normalized, the guide was then engaged into the left coronary artery. The FFR wire was then placed down the LAD. However, the wire did take the diagonal artery 1 turn ini tially. We decided to FFR this wire given its ostial disease. The FFR of the diagonal artery was gr eater than 0.95 in the diagonal artery. This wire was then pulled back and then placed down the LAD proper. Once again, FFR was obtained from the starting point of 0.94 across the lesion. After adeno sine infusion, the FFR reduced to 0.86. The wire was then pulled back. Attempts were then made to p ut this FFR wire into the left circumflex artery. However, the very tight lesion in the mid left cir cumflex artery prevented the FFR wire from traversing this area. Given the angiographic description of this lesion as well as the difficulty in the FFR wire in traversing it, we decided that we would p roceed with intervention of this lesion given the angiographic severity and inability to deliver the FFR wire. The FFR wire was removed. A Choice PT wire was then placed down the left circumflex arter y. Predilatation commenced with a 2.0 x 12 balloon. This was then stented successfully after the ba rolaon was placed with a 3.5 x 12 Synergy drug-eluting stent. Post deployment showed excellent patenc y of the stented area with no evidence of dissection or perforation. There was a slight pinch of a s mall marginal branch coming off this area. However, there was intact flow. At this time, the EBU gu patricia catheter was removed. We then proceeded with a JR4 6-Tajik guide catheter, which was again norm alized in the aorta with a new FFR wire. The right coronary artery was then selectively engaged afte r normalization. The FFR wire was placed into the RPDA where FFR interrogation occurred through the entire length of the RCA. There was reduction of the FFR from 1.00 to 0.91. This was after 2 minute s of adenosine infusion. Given these findings, we decided that these lesions in the RCA were not of critical significance. The wire was removed. The guide catheter was removed with a 0.035 wire. The pigtail catheter was advanced to the ascending aorta. Abdominal aortogram was obtained which showed widely patent distal ascending aorta with patent aortoiliac femoral conduits. At this time, the pig tail catheter was removed. The left groin was sutured in place. Patient tolerated the procedure wel l with no complications. IMPRESSION: 1. Moderate coronary artery disease, verified by fractional flow reserve in multiple vessel branches including diagonal artery, left anterior descending and right coronary artery, all indicating greate r than 0.80 fractional flow reserve which is not of critical significance. 2. Successful percutaneous coronary intervention of high-grade mid left circumflex lesion with a sin gle Synergy 3.5 x 12 mm stent. 3. Normal pulmonic pressures. 4. Patent aortoiliac femoral conduits. PLAN: The patient will be admitted overnight. If clinically stable, will be discharged in 24 hours. We will obtain CTs of the chest, abdomen, and pelvis, as well as carotid ultrasound and move forwar d with our TAVR evaluation. /[id number]/MODL
[2018-11-19 05:19] LABS: PLATELET COUNT 225 10^3/uL (150-400)
--- NOTE | 2018-11-19 07:00 | PDCARPN ---
Cardiology Progress Note Chief Complaint: SOB Assessment/Plan: Assessment: SOB severe CAD Plan: 11/19/18 06:58 stable s/p PCI to LCX Check CTA today d/c home with plavix/ASA f/u next week Subjective: stable Reviewed/Discussed With: multidisciplinary team Time Spent with Patient: greater than 25 minutes Time Spent with Patient: Greater than 25 minutes spent on this patients care, greater than 50% of time spent counseling, educating, and coordinating care regarding the above mentioned plan. Objective: Vital Signs (8 Hrs) Temp Pulse Resp BP Pulse Ox 11/19/18 04:00 36.6 C 67 16 140/63 H 94 11/18/18 23:27 36.6 C 73 18 114/55 L 92 Intake/Output (24 Hrs) 11/18/18 11/19/18 11/20/18 05:59 05:59 05:59 Intake Total 200 Output Total 450 Balance -250 Intake: Oral (ml) 200 Output: Urine (ml) 450 Urinal 450 Other: Weight 70.3 kg Result Diagrams: 11/19/18 03:30 11/19/18 05:00 - Physical Exam Constitutional: no apparent distress Eyes: PERRL Ears, Nose, Mouth, Throat: moist mucous membranes Cardiovascular: regular rate and rhythm, systolic murmur Peripheral Pulses: 1+: femoral (R), femoral (L) Respiratory: clear to auscultate bilat Gastrointestinal: normoactive bowel sounds Genitourinary: no suprapubic tenderness Skin: no rashes Musculoskeletal: no muscular tenderness Neurologic: AAOx3 Psychiatric: cooperative ICD10 Worksheet Patient Problems: Problems Problem Status Onset Intractable low back pain Acute Lumbar radicular pain Acute Lumbar stenosis Acute Osteoarthritis of right hip Acute
[2018-11-19 07:20] VITALS: BP 125/78
--- NOTE | 2018-11-19 07:25 | GDS ---
[f rep st] DISCHARGE SUMMARY DISCHARGE DIAGNOSES: Aortic stenosis. Coronary artery disease. HOSPITAL COURSE: Briefly, this is an 83-year-old male who has a history of severe symptomatic aortic stenosis. The patient had seen Dr. Johnson as an outpatient, deemed to be a suitable candidate for TA VR. The patient underwent diagnostic cardiac catheterization which showed moderate diffuse coronary artery disease with severe disease noted in the left circumflex artery. Dr. Lucas was consulted, an d we decided as a team to proceed with FFR of multiple vessels to determine whether or not the patien t had high-grade stenosis warranting open AVR bypass versus TAVR and single-vessel PCI. The patient underwent FFR of his LAD, diagonal artery, right coronary artery, none of which were less than 0.80 F FR. His left circumflex artery had a 90% mid stenosis, and the FFR wire could not even traverse this area. Hence, we decided proceed with intervention of this area with a drug-eluting stent. Post pro cedure, the patient has done very well, and at this point the patient underwent a carotid ultrasound initially which again secondary to aortic stenosis, appropriate waveforms could not be correctly obta ined; however, there was a question of left internal carotid artery stenosis. The patient will under go CTs of the chest, abdomen, and pelvis as well as carotid angio today for further evaluation. He w ill be discharged later this morning with aspirin and Plavix. He will follow up with me in the offic e next week to discuss all the findings of his reports as well as moving forward with potential TAVR and/or possible carotid surgery in the future. /[id number]/MODL
[2018-11-19] MEDS ORDERED: IOHEXOL 350mgI/ML (OMNIPAQUE) 150 ML BTL IV ONE ×2 (08:47→08:48)
[2018-11-19] MEDS ORDERED: CLOPIDOGREL BISULFATE 75 MG TAB PO SCH (09:00)
[2018-11-19] MEDS ORDERED: VALSARTAN/HCTZ 80-12.5MG TAB PO SCH (09:00)
[2018-11-19] MEDS ORDERED: ASPIRIN 81 MG CHEWABLE TAB PO SCH (09:00)
--- NOTE | 2018-11-19 10:14 | SOAPPROG ---
MARCO Progress Note Assessment/Plan: Assessment: 83 year old with severe symptomatic aortic stenosis. He is at increased risk for surgical AVR and I believe TAVR is best option. Risks, benefits alternatives reviewed. Patient agrees to proceed. Plan: Review CTA. TAVR scheduling 11/19/18 10: Objective: Vital Signs Temp Pulse Resp BP Pulse Ox 36.6 C 70 16 125/78 H 92 11/19/18 07:18 11/19/18 07:18 11/19/18 07:18 11/19/18 07:18 11/19/18 07:18 Laboratory Results 11/19/18 03:30 11/19/18 05:00 11/18/18 11/19/18 11/20/18 05:59 05:59 05:59 Intake Total 200 Output Total 450 Balance -250 PT 14.2 SEC (12.0-15.0) 11/18/18 09:06 INR 1.08 (0.83-1.16) 11/18/18 09:06 ICD10 Worksheet Patient Problems: Problems Problem Status Onset Intractable low back pain Acute Lumbar radicular pain Acute Lumbar stenosis Acute Osteoarthritis of right hip Acute
--- NOTE | 2018-11-19 11:31 | ASMTDCNOTE ---
Case Management Discharge Discharge Order Complete? Answers: Yes Patient to Obtain Answers: via Family Medications Transportation Arranged Answers: Family/Friends Transport will Pick (Date 11/19/2018 12:00 AM & Time) Family Notified Answers: Yes Notes: in the room Discharge Comments Notes: Spoke with pt and in the room. Pt to discharge independently to home with support from . No CM needs noted at this time. Cm available should needs change. Date Signed: 11/19/2018 11:31 AM Electronically Signed By:Emelina Grace
--- NOTE | 2018-11-19 11:33 | ASMTLACE ---
HOWARDE Length of stay for Answers: 1 day current admission Acuity / Level of Answers: No Care: Did the patient have an inpatient admission? Comorbidities - select Answers: Coronary Artery Disease all that apply Mild liver or renal disease Opioid dependence / Chronic pain # of Emergency department Answers: 0 visits in the last 6 months Score: 9 Date Signed: 11/19/2018 11:32 AM Electronically Signed By:Emelina Grace
--- NOTE | 2018-11-19 11:36 | ASDISCHSUM ---
Discharge Information Plan Status:Home with No Needs Medically Cleared to Leave:11/18/2018 Discharge Date:11/18/2018 CM D/C Disposition:Home, Routine, Self-Care ADT D/C Disposition:Home, Routine, Self-Care Projected Discharge Date:11/18/2018 Transportation at D/C:Family Discharge Delay Reason: Follow-Up Date:11/18/2018 Discharge Slot: Final Diagnosis:CAD, aortic stenosis Placement Information Patient Contact Information Contact Name:SINAN Relationship: Address:[address] Work Phone: City:[facility] Phone: [facility]/Zip Code:[place] [address] Email: Financial Information Financial Class:Medicare Advantage Plans Primary Plan Desc:[facility] ADVANTAGE PLANS Primary Plan Number:[id number] Secondary Plan Desc: Secondary Plan Number: Assessment Information LACE LACE Length of stay for Answers: 1 day current admission Acuity / Level of Answers: No Care: Did the patient have an inpatient admission? Comorbidities - select Answers: Coronary Artery Disease all that apply Mild liver or renal disease Opioid dependence / Chronic pain # of Emergency department Answers: 0 visits in the last 6 months Score: 9 Date Signed: 11/19/2018 11:32 AM Electronically Signed By:Emelina Grace Case Management Discharge Plan Note Case Management Discharge Discharge Order Complete? Answers: Yes Patient to Obtain Answers: via Family Medications Transportation Arranged Answers: Family/Friends Transport will Pick (Date 11/19/2018 12:00 AM & Time) Family Notified Answers: Yes Notes: in the room Discharge Comments Notes: Spoke with pt and in the room. Pt to discharge independently to home with support from . No CM needs noted at this time. Cm available should needs change. Date Signed: 11/19/2018 11:31 AM Electronically Signed By:Emelina Grace Intervention Information
--- NOTE | 2018-11-19 15:54 | CPEKG ---
Test Reason : OPEN Blood Pressure : / mmHG Vent. Rate : 075 BPM Atrial Rate : 075 BPM P-R Int : 150 ms QRS Dur : 103 ms QT Int : 415 ms P-R-T Axes : 032 -48 055 degrees QTc Int : 464 ms Sinus rhythm Left anterior fascicular block Confirmed by Yousif Joseph ([id number]) on 11/19/2018 3:53:33 PM Referred By: Dandy Parham Confirmed By:Yousif Joseph
== END 2018-11-19 13:05 | disposition home or self-care (01) ==
LOC: FCATH 08:41 → F2W 11:27
PROVIDERS: ADMIT Internal Medicine Cardiovascular Disease; ATTEND Internal Medicine Cardiovascular Disease
PROC: 4A023N6 Measurement of Cardiac Sampling and Pressure, Right Heart, Percutaneous Approach (ICD-10-PCS; principal; 2018-11-18)
PROC: B2111ZZ Fluoroscopy of Multiple Coronary Arteries using Low Osmolar Contrast (ICD-10-PCS; principal; 2018-11-18)
PROC: 027034Z Dilation of Coronary Artery, One Artery with Drug-eluting Intraluminal Device, Percutaneous Approach (ICD-10-PCS; principal; 2018-11-18)
DX: I35.0 Nonrheumatic aortic (valve) stenosis (principal); I25.10 Atherosclerotic heart disease of native coronary artery without angina pectoris
CPT/HCPCS: 70498; 71275; 74174; 93005; 93454; 93571; 93572; 93798; 93880; C1725; C1769; C1874; C1887; C9600; G0378; J0153; J0583; J1644; J2250; J3010; Q9967